=== PATIENT | male | born 1970 | race Caucasian/White ===

== ENCOUNTER 2023-05-17 14:34 | Emergency (ER) | payer MEDICAID ==
[~2023-05-17] VITALS: Ht 200.7 cm; Wt 130.0 kg
[2023-05-17] MEDS ORDERED: ACETAMINOPHEN 500 MG TAB PO ONE ×2 (15:00→16:30)
[2023-05-17] MEDS ORDERED: SODIUM CHLORIDE 0.9% 1,000 ML IV ONE (15:00)
[2023-05-17 15:28] VITALS: BP 156/105; PULSE 116; RESP 20; O2SAT 96
[2023-05-17 15:40] LABS: Basophils # (auto) 0.1 10 ^3/uL (0-0.2); Basophils % (auto) 1.1 % (0.0-2.0); Eosinophils # (auto) 0 10 ^3/uL (0-0.8); Eosinophils % (auto) 0.2 % (0.0-7.0); Hematocrit 44.6 % (41.0-53.0); Hemoglobin 14.5 g/dL (13.5-17.5); Lymphocytes # (auto) 1.6 10 ^3/uL (0.4-5.4); Lymphocytes % (auto) 12.4 % (10.0-50.0); Mean Corpuscular Hemoglobin 29.8 pg (28.0-32.0); Mean Corpuscular Hgb Conc. 32.5 g/dL (32.0-36.0); Mean Corpuscular Volume 91.9 fL (80.0-100.0); Monocytes # (auto) 0.9 10 ^3/uL (0-1.3); Monocytes % (auto) 7.3 % (0.0-12.0); Neutrophils # (auto) 9.9 10 ^3/uL (1.6-8.6); Nucleated Red Blood Cells % 0.1 %; Red Blood Cells 4.85 10^6/uL (4.5-5.90); White Blood Cell 12.6 10^3/uL (4.4-10.8)
[2023-05-17 15:57] LABS: Alanine Aminotransferase 27 U/L (7-40); Albumin 4.2 g/dL (3.2-4.8); Alkaline Phosphatase 122 U/L (46-116); Anion Gap 5 (5-15); Aspartate Aminotransferase 26 U/L (13-40); Bilirubin, Total 2.5 mg/dL (0.2-1.0); Blood Urea Nitrogen 9 mg/dL (9-23); Calcium 9.4 mg/dL (8.5-10.1); Carbon Dioxide 27 mmol/L (20-30); Chloride 107 mmol/L (98-107); Glucose 166 mg/dL (74-106); Sodium 139 mmol/L (136-145); Total Protein 7.4 g/dL (5.7-8.2)
[2023-05-17 16:23] VITALS: TEMP 97.9
[2023-05-17] MEDS ORDERED: ASPirin 325 MG TAB PO ONE (16:30)
[2023-05-17] MEDS ORDERED: FUROSEMIDE 40 MG/4 ML VIAL IV ONE (16:30)
[2023-05-17 16:37] LABS: Lactic Acid w/Reflex 2.4 mmol/L (0.4-2.0)
[2023-05-17] MEDS ORDERED: PIPERACILLIN-TAZO 4.5GM 100 ML IV ONE (16:45)
[2023-05-17 16:52] LABS: INR 1.24 (0.9-1.15); Prothrombin Time 12.8 sec (9.3-11.8)
[2023-05-17] MEDS ORDERED: VANCOMYCIN 1GM/200ML 200 ML IV ONE (18:00)
== END 2023-05-17 16:57 | disposition left against medical advice (07) ==
LOC: ER 14:34
DX: A41.9 Sepsis, unspecified organism (principal); I11.0 Hypertensive heart disease with heart failure; I50.9 Heart failure, unspecified; R50.9 Fever, unspecified; L97.519 Non-pressure chronic ulcer of other part of right foot with unspecified severity; R74.02 Elevation of levels of lactic acid dehydrogenase [LDH]; J44.9 Chronic obstructive pulmonary disease, unspecified; E11.9 Type 2 diabetes mellitus without complications; I25.2 Old myocardial infarction; F17.210 Nicotine dependence, cigarettes, uncomplicated; Z86.73 Personal history of transient ischemic attack (TIA), and cerebral infarction without residual deficits
CPT/HCPCS: 36415; 71045; 73620; 80053; 83605; 83690; 83880; 84484; 85025; 85379; 85610; 86141; 87040; 96360; 99291; J7030

== ENCOUNTER 2025-01-18 02:27 | Emergency (ER) | payer MEDICAID ==
[~2025-01-18] VITALS: Ht 200.7 cm; Wt 156.1 kg
[2025-01-18 02:28] VITALS: BP 148/89; RESP 24; TEMP 99.4; O2SAT 87
[2025-01-18 02:46] VITALS: PULSE 118
--- NOTE | 2025-01-18 03:19 | DVH ---
CHEST RADIOGRAPH Indication: cp Technique: Single frontal view of the chest was obtained COMPARISON: XY CHEST XRAY 1 VIEW on DOS: 05/17/23 FINDINGS: Lines and Tubes: None Lungs: Moderate diffuse increased prominence of the pulmonary vasculature. No evidence of focal conso lidation. Pleura: No effusion. No pneumothorax. Cardiomediastinal contours: Cardiomegaly. Bones: Unremarkable IMPRESSION: 1. Cardiomegaly with moderate pulmonary vascular congestion.
[2025-01-18 04:07] LABS: Chloride 104 mmol/L (98-107); Potassium 4.2 mmol/L (3.5-5.1); Sodium 136 mmol/L (136-145)
[2025-01-18 04:08] LABS: Anion Gap 8 (5-15); Calcium 8.8 mg/dL (8.7-10.4); Carbon Dioxide 24 mmol/L (20-31)
[2025-01-18 04:09] LABS: Hematocrit 40.7 % (41.0-53.0); Hemoglobin 13.2 g/dL (13.5-17.5); Mean Corpuscular Hemoglobin 28.5 pg (28.0-32.0); Mean Corpuscular Volume 88.1 fL (80.0-100.0); Nucleated Red Blood Cells % 0.0 %
[2025-01-18 04:13] LABS: BUN/Creatinine Ratio 6.5 (10.0-20.0)
[2025-01-18 04:16] LABS: Blood Urea Nitrogen 8 mg/dL (9-23); Glucose 149 mg/dL (74-106)
--- NOTE | 2025-01-18 10:38 | ECG ---
[facility] Test Date: 2025-01-18 Test Time: 02:46:05 Pat Name: JOSE MACHADO Department: [facility] ED Patient ID: [id number] Room: Gender: Fitter Helper: : 1970 Requested By: MINI ARIAS Order Number: [id number] Reading MD: Jose Luis Ruelas Measurements Intervals [place] Rate: 118 P: 68 ID: [id number] QRS: 156 QRSD: 104 T: 0 QT: 383 QTc: 537 Interpretive Statements Sinus tachycardia Consider right ventricular hypertrophy Nonspecific T abnormalities, lateral leads Prolonged QT interval Baseline wander in lead(s) I,II,aVR,aVL,aVF Electronically Signed On 01-20-2025 9:51:38 PDT by Jose Luis Ruelas Please click the below link to view image of tracing.
== END 2025-01-18 04:43 | disposition left against medical advice (07) ==
LOC: ER 02:31
DX: R06.02 Shortness of breath (principal); Z53.21 Procedure and treatment not carried out due to patient leaving prior to being seen by health care provider; Z79.899 Other long term (current) drug therapy
CPT/HCPCS: 36415; 71045; 80048; 82947; 82962; 83880; 84484; 85025; 93005

== ENCOUNTER 2025-03-03 00:56 | Inpatient (IN) | payer MEDICAID ==
[2025-03-03] VITALS (9 sets, daily range): BP systolic 112–153; BP diastolic 79–100; PULSE 79–101; RESP 18–20; TEMP 97.3–98.1; O2SAT 91–99
[~2025-03-03] VITALS: Ht 200.7 cm; Wt 160.0 kg
--- NOTE | 2025-03-03 02:01 | ED.PDOC ---
History of Present Illness HPI Comments 54-year-old male complaining of pain and swelling to bilateral lower extremities. Patient states he has been dealing with wounds on his lower legs for months. States he has been homeless, he was prescribed medications for diabetes and CHF. He says he stopped taking approximate one year ago. States he stopped taking them because they cause more side effects and they are worth taking. He thought he can manage treating his wounds on his feet on his own but he has not been able to. He says it become more painful more swollen. Says his multiple wounds on the right foot. Patient also states he has been dealing with shortness of breath over the last 4-5 months. Says he has been getting worse over the last three four days. No fever no chills. Nothing makes it better, exertion makes it worse. Patient is ambulating with a wheelchair. Chief Complaint: Lower Extremity Time Seen by MD: :25 Reviewed Notes: Nurses Notes Allergies: Coded Allergies: NO KNOWN ALLERGIES (Unverified , 05/17/23) Information Source: Patient Mode of Arrival: Ambulatory Past Medical History PAST MEDICAL HISTORY: Asthma, CHF, COPD, DM, NM, TIA Surgical History: Denies all surgeries Family History Family History: Reviewed,noncontributory to illness Social History Smoker: Cigarettes Alcohol: Occasionally Drugs: Other Lives In: Home Constitutional: reports: malaise, weakness; denies: chills, diaphoresis, fatigue, fever, sweats, others EENTM: denies: blurred vision, double vision, ear bleeding, ear discharge, ear drainage, ear pain, ear ringing, eye pain, eye redness, hearing loss, mouth pain, mouth swelling, nasal discharge, nose bleeding, nose congestion, nose pain, photophobia, tearing, throat pain, throat swelling, voice changes, others Respiratory: reports: SOB at rest, SOB with excertion; denies: cough, hemoptysis, orthopnea, shortness of breath, stridor, wheezing, others Cardiovascular: denies: chest pain, dizzy spells, diaphoresis, Dyspnea on exertion, edema, irregular heart beat, left arm pain, lightheadedness, palpitations, PND, syncope, others Gastrointestinal: denies: abdomen distended, abdominal pain, blood streaked bowels, constipated, diarrhea, dysphagia, difficulty swallowing, hematemesis, me benita, nausea, poor appetite, poor fluid intake, rectal bleeding, rectal pain, vomiting, others Genitourinary: denies: burning, dysuria, flank pain, frequency, hematuria, incontinence, penile discharge, penile sore, pain, testicle pain, testicle swelling, urgency, others Neurological: denies: dizziness, fainting, headache, left sided numbness, left sided weakness, numbness, paresthesia, pre-existing deficit, right sided numbness, right sided weakness, seizure, speech problems, tingling, tremors, weakness, others Musculoskeletal: denies: back pain, gout, joint pain, joint swelling, muscle pain, muscle stiffness, neck pain, others Integumetry: denies: bruises, change in color, change in hair/nails, dryness, laceration, lesions, lumps, rash, wounds, others Allergic/Immunocompromised: reports: Difficulty Healing, Frequent Infections; denies: Hives, Itching, others Hematologic/Lymphatic: denies: anemia, blood clots, easy bleeding, easy bruising, swollen glands, others Physical Exam General Appearance: Moderate Distress, Normal HEENT: Normal ENT Inspection, Pharynx Normal, TMs Normal Neck: Full Range of Motion, Non-Tender, Normal, Normal Inspection Respiratory: Chest Non-Tender, Lungs Clear, No Accessory Muscle Use, No Respiratory Distress, Normal Breath Sounds Cardiovascular: No Edema, No JVD, No Murmur, No Gallop, Normal Peripheral Pulses, Regular Rate/Rhythm Breast Exam: Deferred Gastrointestinal: No Organomegaly, Non Tender, No Pulsatile Mass, Normal Bowel Sounds, Soft Genitalia: Deferred Pelvic: Deferred Rectal: Deferred Extremities: Pedal edema, Swelling (Bilateral feet), Tender (Bilateral lower extremity) Musculoskeletal : Apperance: Normal 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 Was a procedure done?: No Differential Dx Considerations may include: Cellulitis, CHF exacerbation, PE, peripheral edema, X-Ray, Labs, Meds, VS Vital Signs Date Time Temp Pulse Resp B/P (MAP) Pulse Ox O2 Delivery O2 Flow Rate FiO2 03/03/25 00:59 97.9 102 20 140/93 95 97.9 Lab Test 10/29/25 02:10 Range/Units White Blood Count 10.8 4.4-10.8 10^3/uL Red Blood Count 4.38 L 4.5-5.90 10^6/uL Hemoglobin 11.7 L 13.5-17.5 g/dL Hematocrit 38.5 L 41.0-53.0 % Mean Corpuscular Volume 87.9 80.0-100.0 fL Mean Corpuscular Hemoglobin 26.7 L 28.0-32.0 pg Mean Corpuscular Hemoglobin Concent 30.4 L 32.0-36.0 g/dL Red Cell Distribution Width 17.6 H 11.8-14.3 % Platelet Count 371 140-450 10^3/uL Mean Platelet Volume 7.6 6.9-10.8 fL Neutrophils (%) (Auto) 79.9 37.0-80.0 % Lymphocytes (%) (Auto) 10.2 10.0-50.0 % Monocytes (%) (Auto) 8.0 0.0-12.0 % Eosinophils (%) (Auto) 0.7 0.0-7.0 % Basophils (%) (Auto) 1.2 0.0-2.0 % Neutrophils # (Auto) 8.6 1.6-8.6 10 ^3/uL Lymphocytes # (Auto) 1.1 0.4-5.4 10 ^3/uL Monocytes # (Auto) 0.9 0-1.3 10 ^3/uL Eosinophils # (Auto) 0.1 0-0.8 10 ^3/uL Basophils # (Auto) 0.1 0-0.2 10 ^3/uL Nucleated Red Blood Cells 0.1 % Sodium Level 138 136-145 mmol/L Potassium Level 4.6 3.5-5.1 mmol/L Chloride Level 105 98-107 mmol/L Carbon Dioxide Level 26 20-31 mmol/L Anion Gap 7 5-15 Blood Urea Nitrogen 9 9-23 mg/dL Creatinine 1.01 0.700-1.30 mg/dL Glomerular Filtration Rate Calc 88 >90 mL/min BUN/Creatinine Ratio 8.9 L 10.0-20.0 Serum Glucose 158 H 74-106 mg/dL Lactic Acid Level 1.4 0.4-2.0 mmol/L Calcium Level 8.8 8.7-10.4 mg/dL Total Bilirubin 0.8 0.2-1.0 mg/dL Aspartate Amino Transferase (AST) 29 13-40 U/L Alanine Aminotransferase (ALT) 25 7-40 U/L Alkaline Phosphatase 102 46-116 U/L B-Type Natriuretic Peptide 981.95 0-100 pg/mL Total Protein 8.0 5.7-8.2 g/dL Albumin 3.5 3.2-4.8 g/dL X-Ray, Labs, Meds, VS Comment Patient will be admitted for shortness of breath, CHF exacerbation, cellulitis of bilateral lower extremities Patient be started on vancomycin Patient be given 40 mg Lasix Time of 1ST Reevaluation: 03:13 Reevaluation 1ST: Unchanged Patient Education/Counseling: Diagnosis, Treatment Family Education/Counseling: Diagnosis, Treatment Assigned to Dr. Dr Garza Change of Shift?: Yes SEPSIS Sepsis Screen Date sepsis recognized/suspect: Mar 03, 2025 Time Sepsis recognized/suspect: 010 Recent Procedure: No On Antibiotic Therapy: No Respiratory Rate >20: No Heart Rate >90: Yes Temp<36 C (96.8 F) or >38.3 C: No SBP <90 or MAP <65 mmHG: No New Acute Mental Status Change: No Is the patient on CPAP, BIPAP,: No Physician Orders Urinalysis (03/03/25 01:38) Blood Culture (03/03/25 01:38) Chest Xray 1 View (03/03/25 01:38) Vancomycin 1gm/250ml Kit (03/03/25 03:15) Vital Signs Date Time Temp Pulse Resp B/P (MAP) Pulse Ox O2 Delivery O2 Flow Rate FiO2 03/03/25 00:59 97.9 102 20 140/93 95 97.9 Laboratory Tests Test 03/03/25 02:10 Lactic Acid Level 1.4 mmol/L (0.4-2.0) White Blood Count 10.8 10^3/uL (4.4-10.8) Departure 1 Departure Time of Disposition: 02:00 Impression: Primary Impression: Chronic ulcer of plantar surface of right midfoot Qualified Codes: L97.419 - Non-pressure chronic ulcer of right heel and midfoot with unspecified severity Additional Impression: CHF exacerbation Qualified Codes: I50.23 - Acute on chronic systolic (congestive) heart failure Disposition: 09 ADMITTED INPATIENT Condition: Stable Critical Care Note Critical Care Time?: No Stability Stability form required: No Heart Score Heart Score: Heart Score Response (Comments) Value History N/A 0 EKG N/A 0 Age N/A 0 Risk Factors N/A 0 Troponin N/A 0 Total 0 JOVANY CASTILLO Mar 03, 2025 02:01
[2025-03-03 02:29] LABS: Hematocrit 38.5 % (41.0-53.0); Hemoglobin 11.7 g/dL (13.5-17.5); Mean Corpuscular Hemoglobin 26.7 pg (28.0-32.0); Mean Corpuscular Volume 87.9 fL (80.0-100.0); Nucleated Red Blood Cells % 0.1 %
--- NOTE | 2025-03-03 02:40 | DVH ---
CHEST RADIOGRAPH Indication: sob Technique: Single frontal view of the chest was obtained COMPARISON: XY CHEST XRAY 1 VIEW on DOS: 01/18/25, XY CHEST XRAY 1 VIEW on DOS: 05/17/23 FINDINGS: Lines and Tubes: None Lungs: Moderate diffuse increased prominence of the pulmonary vasculature without evidence of focal c onsolidation. Pleura: No effusion. No pneumothorax. Cardiomediastinal contours: Cardiomegaly. Bones: Unremarkable IMPRESSION: 1. Cardiomegaly with moderate pulmonary vascular congestion.
[2025-03-03 02:48] LABS: Alanine Aminotransferase 25 U/L (7-40); Albumin 3.5 g/dL (3.2-4.8); Alkaline Phosphatase 102 U/L (46-116); Anion Gap 7 (5-15); BUN/Creatinine Ratio 8.9 (10.0-20.0); Bilirubin, Total 0.8 mg/dL (0.2-1.0); Calcium 8.8 mg/dL (8.7-10.4); Carbon Dioxide 26 mmol/L (20-31); Chloride 105 mmol/L (98-107); Potassium 4.6 mmol/L (3.5-5.1); Sodium 138 mmol/L (136-145); Total Protein 8.0 g/dL (5.7-8.2)
[2025-03-03 02:52] LABS: Blood Urea Nitrogen 9 mg/dL (9-23); Glucose 158 mg/dL (74-106)
[2025-03-03] MEDS: FUROSEMIDE 40 MG/4 ML VIAL IV ONE (03:44)
[2025-03-03] MEDS: VANCOMYCIN 1GM/250ML KIT 250 ML IV ONE (03:44)
[2025-03-03] MEDS: IBUPROFEN 600 MG TAB PO ONE (04:13)
[2025-03-03] MEDS: ACETAMINOPHEN 325 MG TAB PO ONE (04:13)
[2025-03-03] MEDS ORDERED: DEXTROSE (50%) 50ML SYRG IV PRN (04:45)
[2025-03-03] MEDS ORDERED: VANCOMYCIN PER PHARMACY 0 MG IV SCH (04:45)
--- NOTE | 2025-03-03 05:22 | DVHHPRES ---
History of Present Illness Resident Creating Document: JOHN SHAFFER History of Present Illness Patient is a 54-year-old homeless male with past medical history of CHF (EF 10%), COPD, DM, NE and stroke, presented to [facility] ED with complaint of pain and swelling in bilateral lower extremities. He reports having wounds on both lower legs for several months. Patient was previously prescribed medications for diabetes and CHF, which he discontinued approximately one year ago due to perceived side effects and lack of benefit. He reports worsening pain and swelling in his both legs, particularly on the right foot. He reports progressive shortness of breath over the past 4 months, with worsening symptoms over the last 4 days. On evaluation in the ED, patient is afebrile, tachycardic, tachypnea, hypertensive (141/86 mmHg) and hypoxic, using 2 L Oxygen NC. Initial labs show normocytic anemia and serum glucose 158. Chest X-ray shows cardiomegaly with moderate pulmonary vascular congestion. The patient was started on IV antibiotics and IV fluids. Patient is admitted for further evaluation and management. Past Medical History CHF (EF 10%), COPD, DM, NE, stroke Past Surgical History: Hernia Repair Family History: None Smoke: # pack years ALCOHOL: occassional Drugs: Other Lives: Homeless Past Social History Smoke: >40 years 1 pack a day. Alcohol: Occasionally. Drug: Methamphetamine, heroin, cocaine Review of Systems Review of Systems Constitutional: Malaise, weakness Eyes: No Pain, No Vision change, No Conjunctivae inflammation, No Eyelid inflammation, No Other, No Redness ENT: No Ear pain, No Ear discharge, No Nose pain, No Nose discharge, No Nose congestion, No Mouth pain, No Mouth swelling, No Throat pain, No Throat swelling, No Other Cardiovascular: No Chest Pain, No Palpitations, No Orthopnea, No Paroxysmal No Dyspnea, No Edema, No Lt Headedness, No Other Respiratory: No Cough, No Dry, Shortness of breath, SOB with exertion, No Wheezing, No Hemoptysis, No Pleuritic Pain, No Sputum, No Other Gastrointestinal: No Nausea, No Vomiting, No Abdominal Pain, No Diarrhea, No Constipation, No Melena, No Hematochezia, No Other Genitourinary: No Dysuria, No Frequency, No Incontinence, No Hematuria, No R etention, No Other Musculoskeletal: No other, No neck pain, No shoulder pain, No arm pain, No back pain, No hand pain, leg pain, foot pain Skin: No Rash, No Lesions, No Jaundice, No Bruising, No Other Allergic/Immunocompromised: Difficulty Healing, Frequent Infections Allergies: Coded Allergies: NO KNOWN ALLERGIES (Unverified , 05/17/23) Medications Current Medications Medications Dose Ordered Sig/Fartun Route Start Time Stop Time Status Last Admin Dose Admin Sodium Chloride 10 ml Q8HR IV 03/03/25 06:00 UNV Enoxaparin Sodium 40 mg DAILY SC 03/03/25 10:00 UNV Acetaminophen 650 mg Q6HP PRN PO 03/03/25 04:45 UNV Vancomycin HCl 0 ml @ 0 mls/hr PER PHARMACY IV 03/03/25 04:45 UNV Ceftriaxone Sodium 50 ml @ 100 mls/hr DAILY@09 IV 03/03/25 09:00 UNV Exam Vital Signs Vital Signs Date Time Temp Pulse Resp B/P (MAP) Pulse Ox O2 Delivery O2 Flow Rate FiO2 03/03/25 04:00 102 03/03/25 03:44 136/87 03/03/25 03:36 20 92 Nasal Cannula* 2 28 03/03/25 03:36 98.1 98.1 Exam General Appearance: Cooperative. Well developed. Well nourished. NAD Head Exam: Normal inspection Neck Exam: Normal inspection. Non-tender. Normal alignment Pulmonary/Respiratory: Chest non-tender. Clear bilateral breath sounds, no crackles, no wheezing. Cardiovascular/Chest: Regular rate and rhythm. No murmurs. No JVD. Peripheral Pulses: 2+ Radial (R). 2+ Radial (L). 2+ Pedal (R). 2+ Pedal (L) Abdominal Exam: Normal bowel sounds. Soft. normal abdomen, no visible veins, Nontender. No hepatospenomegaly. No masses Ankle Exam: Negative ankle edema Lower extremities: Lower extremity edema, pedal edema, bilateral feet swelling, bilateral lower extremity tenderness, right foot Charcot deformity, Chronic ulcer of plantar surface of right midfoot Neuro/Mental Status: A&O x4. Coherent. Thoughts/Psych: Normal thought pattern. Appropriate mood and affect. Good judgement and insight Skin Exam: Normal inspection. Normal color. Warm. Dry Labs/Xrays Labs Test 03/03/25 02:10 Range/Units White Blood Count 10.8 4.4-10.8 10^3/uL Red Blood Count 4.38 L 4.5-5.90 10^6/uL Hemoglobin 11.7 L 13.5-17.5 g/dL Hematocrit 38.5 L 41.0-53.0 % Mean Corpuscular Volume 87.9 80.0-100.0 fL Mean Corpuscular Hemoglobin 26.7 L 28.0-32.0 pg Mean Corpuscular Hemoglobin Concent 30.4 L 32.0-36.0 g/dL Red Cell Distribution Width 17.6 H 11.8-14.3 % Platelet Count 371 140-450 10^3/uL Mean Platelet Volume 7.6 6.9-10.8 fL Neutrophils (%) (Auto) 79.9 37.0-80.0 % Lymphocytes (%) (Auto) 10.2 10.0-50.0 % Monocytes (%) (Auto) 8.0 0.0-12.0 % Eosinophils (%) (Auto) 0.7 0.0-7.0 % Basophils (%) (Auto) 1.2 0.0-2.0 % Neutrophils # (Auto) 8.6 1.6-8.6 10 ^3/uL Lymphocytes # (Auto) 1.1 0.4-5.4 10 ^3/uL Monocytes # (Auto) 0.9 0-1.3 10 ^3/uL Eosinophils # (Auto) 0.1 0-0.8 10 ^3/uL Basophils # (Auto) 0.1 0-0.2 10 ^3/uL Nucleated Red Blood Cells 0.1 % Sodium Level 138 136-145 mmol/L Potassium Level 4.6 3.5-5.1 mmol/L Chloride Level 105 98-107 mmol/L Carbon Dioxide Level 26 20-31 mmol/L Anion Gap 7 5-15 Blood Urea Nitrogen 9 9-23 mg/dL Creatinine 1.01 0.700-1.30 mg/dL Glomerular Filtration Rate Calc 88 >90 mL/min BUN/Creatinine Ratio 8.9 L 10.0-20.0 Serum Glucose 158 H 74-106 mg/dL Lactic Acid Level 1.4 0.4-2.0 mmol/L Calcium Level 8.8 8.7-10.4 mg/dL Total Bilirubin 0.8 0.2-1.0 mg/dL Aspartate Amino Transferase (AST) 29 13-40 U/L Alanine Aminotransferase (ALT) 25 7-40 U/L Alkaline Phosphatase 102 46-116 U/L B-Type Natriuretic Peptide 981.95 0-100 pg/mL Total Protein 8.0 5.7-8.2 g/dL Albumin 3.5 3.2-4.8 g/dL SEPSIS Sepsis Screen Date sepsis recognized/suspect: Mar 03, 2025 Time Sepsis recognized/suspect: 337 Recent Procedure: No On Antibiotic Therapy: No Respiratory Rate >20: No Heart Rate >90: No Temp<36 C (96.8 F) or >38.3 C: No SBP <90 or MAP <65 mmHG: No New Acute Mental Status Change: No Is the patient on CPAP, BIPAP,: No Physician Orders Urinalysis (03/03/25 01:38) Blood Culture (03/03/25 01:38) Chest Xray 1 View (03/03/25 01:38) Admit (03/03/25 04:31) Allergies (03/03/25 04:31) Code Status (03/03/25 04:31) Sodium Chloride Lock (Saline Lock Ns) (03/03/25 06:00) Enoxaparin Sodium (Lovenox) (03/03/25 10:00) Complete Blood Count (03/03/25 04:31) Comprehensive Metabolic Panel (03/03/25 04:31) Cardiac Diet-2gna,Lofat,Lochol (03/03/25 Breakfast) Pt Request For Service (03/03/25 04:31) Echo 2d Mode Cardiac Dop (03/03/25 04:31) Condition: Fair (03/03/25 04:31) Acetaminophen Tablet (Tylenol Tablet) (03/03/25 04:45) Oxygen By Nasal Cannula (03/03/25 04:31) Stat Ekg For Chest Pain (03/03/25 04:31) Notify Md Of Changes From Base (03/03/25 04:31) Community Service Worker For 24 Hours (03/03/25 04:31) Emergency Dysrhythmia Protocol (03/03/25 04:31) Rhythm Strips Once Every Shift (03/03/25 04:31) Urinalysis (03/03/25 04:31) Drug Screen (03/03/25 04:31) Hepatic Panel (03/03/25 04:31) Vancomycin Per Pharmacy (03/03/25 04:45) Ceftriaxone 1gm/50ml (Rocephin) (03/03/25 09:00) Ceftriaxone 1gm/50ml (Rocephin) (03/03/25 04:45) * Wound Consult (03/03/25 ) Furosemide Injection (Lasix Injection) (03/03/25 10:00) Glucose Blood (Accu-Chek Comfort Curve T (03/03/25 07:00) Insulin R (Human) (Insulin R) (03/03/25 07:00) Dextrose 50% Syringe (03/03/25 04:45) Maintain Fluid Restrictions QSHIFT (03/03/25 04:31) Strict I & O QSHIFT (03/03/25 04:31) Levalbuterol Hcl (Xopenex Medneb) (03/03/25 06:00) Ipratropium Medneb (Atrovent Medneb) (03/03/25 04:45) Med Neb Initial Treatment (03/03/25 04:31) Magnesium (03/03/25 04:31) Covid19 Antigen Rama (03/03/25 ) Rapid Influenza A&B (03/03/25 04:31) Hydrocodone-Acet 5/325mg Tab ([place] (03/03/25 04:45) Mrsa Screen (03/03/25 04:31) Vital Signs Date Time Temp Pulse Resp B/P (MAP) Pulse Ox O2 Delivery O2 Flow Rate FiO2 03/03/25 04:00 102 03/03/25 03:44 136/87 03/03/25 03:36 98 20 92 Nasal Cannula* 2 28 03/03/25 03:36 98.1 102 22 141/86 (104) 92 98.1 03/03/25 00:59 97.9 102 20 140/93 95 97.9 Laboratory Tests Test 03/03/25 02:10 Lactic Acid Level 1.4 mmol/L (0.4-2.0) White Blood Count 10.8 10^3/uL (4.4-10.8) Medications Medications Dose Ordered Sig/Fartun Route Start Time Stop Time Status Last Admin Dose Admin Acetaminophen 650 mg ONCE ONCE PO 03/03/25 04:00 03/03/25 04:10 DC 03/03/25 04:13 650 MG Furosemide 40 mg ONCE ONCE IV 03/03/25 03:15 03/03/25 03:19 DC 03/03/25 03:44 40 MG Ibuprofen 600 mg ONCE ONCE PO 03/03/25 04:00 03/03/25 04:10 DC 03/03/25 04:13 600 MG Vancomycin HCl 250 ml @ 250 mls/hr ONCE ONCE IV 03/03/25 03:15 03/03/25 04:14 DC 03/03/25 03:44 250 MLS/HR Assessment/Plan Assessment/Plan Acute CHF exacerbation, HFrEF (EF 10%) Acute hypoxic respiratory failure likely due to above CXR: Cardiomegaly with moderate pulmonary vascular congestion. Echocardiogram ordered Furosemide 40 mg IV daily Levalbuterol 1.25 mg neb q4h Ipratropium 0.5 mg neb COVID 19 Antigen Rapid Influenza Bilateral lower extremity cellulitis Chronic ulcer of plantar surface of right midfoot likely due to complicated by uncontrolled diabetes Wound consult Blood culture MRSA screen Pain management with acetaminophen 650 mg po q6h and [place] 1 tab po q6h Ceftriaxone IV daily Vancomycin IV per pharmacy Type 2 diabetes mellitus with hyperglycemia, uncontrolled Mild sliding scale A1c Obesity, BMI 42.4 kg/m2 I have counseled the patient on [place] lifestyle modifications. Diet: Cardiac DVT prophylaxis: Lovenox 40mg Goals of care: Full code, discussed for >30 minutes on 03/03/25 Plan discussed with patient Plan discussed with Dr. Lopez Plan discussed with: Patient, Daughter My Orders Orders - JOHN SHAFFER Procedure Category Date Status Time Admit ADMIT 03/03/25 Transmitted 04:31 Allergies LONG 03/03/25 In Process 04:31 Code Status CODE 03/03/25 Transmitted 04:31 Sodium Chloride Lock PHA 03/03/25 Logged (Saline Lock Ns) 06:00 Enoxaparin Sodium PHA 03/03/25 Logged (Lovenox) 10:00 Complete Blood Count LAB 03/03/25 Logged 04:31 Comprehensive LAB 03/03/25 Logged Metabolic Panel 04:31 Cardiac DIET 03/03/25 Transmitted Diet-2gna,Lofat,Lochol Breakfast Pt Request For Service PT 03/03/25 Logged 04:31 Echo 2d Mode Cardiac US 03/03/25 Logged DOP 04:31 Condition: Fair [facility] 03/03/25 In Process 04:31 Acetaminophen Tablet PHA 03/03/25 Logged (Tylenol Tablet) 04:45 Oxygen By Nasal RT 03/03/25 Transmitted Cannula 04:31 Stat Ekg For Chest [facility] 03/03/25 In Process Pain 04:31 Notify Of Changes [facility] 03/03/25 In Process From Base 04:31 Community Service Worker For [facility] 03/03/25 In Process 24 Hours 04:31 Emergency Dysrhythmia [facility] 03/03/25 In Process Protocol 04:31 Rhythm Strips Once [facility] 03/03/25 In Process Every Shift 04:31 Urinalysis LAB 03/03/25 Logged 04:31 Drug Screen LAB 03/03/25 Logged 04:31 Hepatic Panel LAB 03/03/25 Logged 04:31 Vancomycin Per PHA 03/03/25 Logged Pharmacy 04:45 Ceftriaxone 1gm/50ml PHA 03/03/25 Logged (Rocephin) 09:00 Ceftriaxone 1gm/50ml PHA 03/03/25 Logged (Rocephin) 04:45 * Wound Consult CONS 03/03/25 Transmitted Furosemide Injection PHA 03/03/25 Logged (Lasix Injection) 10:00 Glucose Blood PHA 03/03/25 Logged (Accu-Chek Comfort 07:00 Insulin R (Human) PHA 03/03/25 Logged (Insulin R) 07:00 Dextrose 50% Syringe PHA 03/03/25 Logged 04:45 Maintain Fluid [facility] 03/03/25 In Process Restrictions 04:31 Strict I & O [facility] 03/03/25 In Process 04:31 Levalbuterol Hcl PHA 03/03/25 Transmitted (Xopenex Medneb) 06:00 Ipratropium Medneb PHA 03/03/25 Transmitted (Atrovent Medneb) 04:45 Med Neb Initial RT 03/03/25 Logged Treatment 04:31 Magnesium LAB 03/03/25 Logged 04:31 Covid19 Antigen Rama LAB 03/03/25 Logged Rapid Influenza A&B LAB 03/03/25 Logged 04:31 Hydrocodone-Acet PHA 03/03/25 Transmitted 5/325mg Tab ([place] 04:45 Mrsa Screen STEVEN 03/03/25 Logged 04:31 Date of Service: Mar 03, 2025 Billing Provider: THOMAS LOPEZ MD Common Visit Codes: [id number] INP/OBS CARE (HIGH) Secondary Visit Codes: [id number] CARE PLAN 30 MINUTES JOHN SHAFFER RESIDENT Mar 03, 2025 05:22
[2025-03-03] MEDS: SODIUM CHLOR 0.9% PF (SALINE LOCK) 10ML VIAL/SYR IV SCH (05:51)
[2025-03-03] MEDS: ACCU-CHEK COMFORT CURVE STRIP VI SCH (05:53)
[2025-03-03] MEDS: InsuLIN REG 1unit/0.01ml Soln (100units/ml) SC SCH (05:59)
[2025-03-03] MEDS: LEVALBUTEROL HCL 1.25 MG/3 ML NEB NEB SCH (06:00)
[2025-03-03 06:29] LABS: Hematocrit 36.8 % (41.0-53.0); Hemoglobin 11.5 g/dL (13.5-17.5); Mean Corpuscular Hemoglobin 26.8 pg (28.0-32.0); Mean Corpuscular Volume 85.9 fL (80.0-100.0); Nucleated Red Blood Cells % 0.1 %
[2025-03-03 06:49] LABS: Alanine Aminotransferase 22.0 U/L (7-40); Alkaline Phosphatase 97.0 U/L (46-116); Magnesium 1.8 mg/dL (1.6-2.6); Total Protein 7.9 g/dL (5.7-8.2)
[2025-03-03 06:50] LABS: Albumin 3.3 g/dL (3.2-4.8); Bilirubin, Total 0.9 mg/dL (0.2-1.0)
[2025-03-03 06:53] LABS: Bilirubin, Direct 0.5 mg/dL (<0.3)
[2025-03-03 06:58] LABS: Alanine Aminotransferase 22 U/L (7-40); Albumin 3.4 g/dL (3.2-4.8); Alkaline Phosphatase 98 U/L (46-116); Anion Gap 9 (5-15); BUN/Creatinine Ratio 8.0 (10.0-20.0); Carbon Dioxide 25 mmol/L (20-31); Chloride 105 mmol/L (98-107); Potassium 4.1 mmol/L (3.5-5.1); Sodium 139 mmol/L (136-145); Total Protein 7.9 g/dL (5.7-8.2)
[2025-03-03 06:59] LABS: Bilirubin, Total 0.8 mg/dL (0.2-1.0)
[2025-03-03 07:00] LABS: Blood Urea Nitrogen 9 mg/dL (9-23); Calcium 8.5 mg/dL (8.7-10.4); Glucose 157 mg/dL (74-106)
[2025-03-03] MEDS ORDERED: FUROSEMIDE 40 MG/4 ML VIAL IV SCH (10:00)
[2025-03-03] MEDS: ENOXAPARIN SOD 40 MG/0.4 ML SYRINGE SC SCH (10:00)
[2025-03-03 10:33] LABS: COVID19 ANTIGEN SOFIA FIA NEGATIVE (NEGATIVE)
[2025-03-03] MEDS: OPTISON 3ml Vial for INJ IV ONE ×2 (11:15→11:22)
[2025-03-03] MEDS ORDERED: VANCOMYCIN 1.5GM/250ML 250 ML IV SCH (16:00)
[2025-03-03] MEDS: CEFEPIME 1GM/50ML 50 ML IV SCH (16:09)
--- NOTE | 2025-03-03 16:43 | DVHPNRES ---
Progress Note Date Seen: Mar 03, 2025 Resident Creating Document: FRANKLIN PERALES RESIDENT Medical Necessity Reason Pt with a Central, PICC or Fol: No Subjective Review of Systems History on presentation: Patient is a 54-year-old homeless male with past medical history of CHF (EF 10%), COPD, DM, [place] and stroke, presented to [facility] ED with complaint of pain and swelling in bilateral lower extremities. Patient is a poor historian. Patient complains of pain in bilateral thighs, relieved with walking. He also reports having nonhealing ulcers on both lower legs for several months. Patient was previously prescribed medications for diabetes and CHF, which he discontinued approximately one year ago due to perceived side effects and lack of benefit. He reports worsening pain and swelling in his both legs, particularly on the right foot. He reports progressive shortness of breath over the past 4 months, with worsening symptoms over the last 4 days. He denies fever, chills, nausea, vomiting. On arrival, patient had tachycardic, tachypnea and hypoxic, using 2 L Oxygen NC. Initial labs show normocytic anemia and serum glucose 158. Chest X-ray shows cardiomegaly with moderate pulmonary vascular congestion. Previous hospitalization: PMHx: CHF (EF 10%), COPD, DM, TX, stroke, HTN PSHx: Hernia Repair Social history: Smoke: >40 years 1 pack a day. Alcohol: Occasionally. Drug: Methamphetamine, heroin, cocaine. Unhoused Home medication: Noncompliant Allergic history: No known allergies ROS: Constitutional: Denies weight loss, fever and chills. HEENT: Denies changes in vision and hearing. Respiratory: Denies shortness of breath and cough Cardiovascular: Denies chest discomfort or palpitations GI: Denies abdominal pain, nausea, vomiting and diarrhea. : Denies dysuria and urinary frequency. Musculoskeletal: Bilateral lower extremity swelling and pain. Skin: Denies rash and pruritus. Neurological: Denies dizziness, headache, vision or hearing problems 03/03/2025: Patient was examined at bedside today. Wound Care on board, patient continued to complain of pain Objective vital signs Vital Sign Date Time Temp Pulse Resp B/P (MAP) Pulse Ox O2 Delivery O2 Flow Rate FiO2 03/03/25 13:28 97.7 79 20 143/100 (114) 95 97.7 03/03/25 05:20 2.0 28 03/03/25 03:36 Nasal Cannula* medications Current Medications Medications Dose Ordered Sig/Fartun Route Start Time Stop Time Status Last Admin Dose Admin Sodium Chloride 10 ml Q8HR IV 03/03/25 06:00 03/03/25 14:22 10 ML Enoxaparin Sodium 40 mg DAILY SC 03/03/25 10:00 Acetaminophen 650 mg Q6HP PRN PO 03/03/25 04:45 Vancomycin HCl 0 ml @ 0 mls/hr PER PHARMACY IV 03/03/25 04:45 Ceftriaxone Sodium 50 ml @ 100 mls/hr DAILY@09 IV 03/03/25 09:00 UNV Diagnostic Test (Pha) 1 strip ACHS 03/03/25 07:00 03/03/25 11:59 1 STRIP Insulin Human Regular ACHS SC 03/03/25 07:00 03/03/25 05:59 3 UNITS Dextrose 50 ml UD PRN IV 03/03/25 04:45 Levalbuterol HCl 1.25 mg Q4HPRN NEB 03/03/25 06:00 Ipratropium [place] 0.5 mg Q4HPRN PRN NEB 03/03/25 04:45 Acetaminophen/ Hydrocodone Bitart 1 tab Q6HPRN PRN PO 03/03/25 04:45 Cefepime HCl 50 ml @ 12.5 mls/hr Q8HR IV 03/03/25 14:00 03/03/25 16:09 12.5 MLS/HR Furosemide 40 mg BIDD IV 03/03/25 18:00 Magnesium Sulfate/ Dextrose 100 ml @ 100 mls/hr Q1HR IV 03/03/25 15:00 03/03/25 16:59 Vancomycin HCl 250 ml @ 166.667 mls/hr Q12H IV 03/03/25 18:00 Examination General: Patient alert and oriented in person, place and time. Patient drowsy on bedside. HEENT: Normocephalic, atraumatic, moist mucous membranes Respiratory/pulmonary: Crackles heard bilaterally. Cardiovascular: Distant heart sounds Abdomen: Tender Umbilical hernia with thickening of skin around the umbilicus. Extremities: Previous incision Scar on left thigh. Dorsal ulcer on left foot, draining yellow discharge. Right foot plantar ulcer, with necrotic base, draining foul-smelling discharge. Right foot swollen, erythematous, Charcot deformity present. Skin: No rashes or pruritus, there is no sacral edema present at this time. Neurological: Intact cranial nerves with no focal neurologic deficits laboratory and microbiology Laboratory Tests 03/03/25 05:51 Test 03/03/25 05:51 Range/Units Serum Glucose 157 H 74-106 mg/dL Problem List/Assessment/Plan Problem List/Assessment/Plan Acute CHF exacerbation, HFrEF (EF 10%) Advanced heart failure noncompliant to GDMT Acute hypoxic respiratory failure likely due to above CXR: Cardiomegaly with moderate pulmonary vascular congestion. On 2 L oxygen supplementation Furosemide 40 mg IV b.i.d. with strict I&O Levalbuterol 1.25 mg neb q4h, Ipratropium 0.5 mg neb COVID 19, influenza negative Echocardiogram pending Bilateral lower extremity cellulitis Chronic ulcer of plantar surface of right midfoot likely due to complicated by uncontrolled diabetes Chronic nonhealing ulcer on dorsal surface of left foot Charcot arthropathy right foot Wound consult Blood culture, MRSA screen ordered Pain management with acetaminophen 650 mg po q6h and [place] 1 tab po q6h Started on IV vancomycin and cefepime MRI bilateral foot pending Type 2 diabetes mellitus with hyperglycemia, uncontrolled Mild sliding scale A1c 8.0 Obesity, BMI 42.4 kg/m2 I have counseled the patient on [place] lifestyle modifications. History of Polysubstance abuse Pending urinary drug screen Patient counseled at bedside for more than 12 minutes to quit abuse Patient leaving AMA, continue substance abuse undetermined DIET: Cardiac DVT PROPHYLAXIS: Lovenox GI PROPHYLAXIS: Protonix CODE STATUS: Goals of care discussed with patient at bedside for more than 16 minutes. Full code DISPOSITION: Telemetry This medical document was created using an electronic medical record system with [employer] direct computerized dictation system. Although this document has been carefully reviewed, there may still be some phonetic and typographical errors. These areas are purely typographical due to imperfections of the software programs, and do not reflect any compromise in the patient's medical care. Patient's status and plan discussed with the patient. Case discussed with Dr. Figueroa Plan discussed with: Patient, Other (Nurses) Date of Service: Mar 03, 2025 Billing Provider: FRANKLIN PERALES RESIDENT Common Visit Codes: [id number] INP/OBS CARE(HIGH) FRANKLIN PERALES RESIDENT Mar 03, 2025 16:43 SHYANNE FIGUEROA MD Mar 08, 2025 20:32
--- NOTE | 2025-03-03 18:05 | DVH ---
EXAMINATION: MRI MRI L FOOT WO CONTRAST TECHNIQUE: MRI of the left foot was performed without contrast HISTORY: ulcers. Pain and swelling. COMPARISON: MRI MRI R FOOT WO CONTRAST on DOS: 03/03/25, XY R FOOT 2 VIEW XRAY on DOS: 05/17/23 FINDINGS: Generalized soft tissue edema throughout the foot. No focal fluid collections. No marrow edema to suggest acute osteomyelitis. Flexor and extensor tendons are intact. No tenosynovitis. Diffuse intramuscular edema. No obvious whitney's neuroma IMPRESSION: Diffuse soft tissue edema without abscess or osteomyelitis. Diffuse intramuscular edema most commonly related to a diabetic neuropathy.
[2025-03-03] MEDS: MAGNESIUM SULFATE 1GM/100ML 100 ML IV SCH (18:06)
[2025-03-03] MEDS: FUROSEMIDE 40 MG/4 ML VIAL IV SCH (18:07)
[2025-03-03] MEDS: VANCOMYCIN 1.5GM/250ML 250 ML IV SCH (18:07)
--- NOTE | 2025-03-03 18:54 | DVH ---
EXAMINATION: MRI MRI R FOOT WO CONTRAST TECHNIQUE: MRI of the right foot was performed without intravenous contrast. HISTORY: ulcers COMPARISON: MRI MRI L FOOT WO CONTRAST on DOS: 03/03/25, XY R FOOT 2 VIEW XRAY on DOS: 05/17/23 FINDINGS: Extensive bone marrow edema and destructive bony changes throughout the great toe proximal phalanx as well as throughout the 1st metatarsal. Otherwise no definite bone marrow edema. Severe diffuse soft tissue edema. No obvious focal fluid collection. Please note contrast was not adm inistered. Flexor extensor tendons appear intact. No tenosynovitis. Diffuse intramuscular edema. IMPRESSION: Diffuse osteomyelitis throughout the 1st metatarsal and great toe. Diffuse soft tissue edema. Diffuse intramuscular edema.
[2025-03-03 19:50] LABS: Albumin 3.3 g/dL (3.2-4.8); Alkaline Phosphatase 106.0 U/L (46-116); Magnesium 1.8 mg/dL (1.6-2.6); Total Protein 7.7 g/dL (5.7-8.2)
[2025-03-03 19:51] LABS: Bilirubin, Total 0.7 mg/dL (0.2-1.0)
--- NOTE | 2025-03-03 20:01 | DVH ---
BILATERAL Lower Extremity Arterial Duplex Date: 03/03/2025 06:28 PM Clinical History: R/o PAD Comparison: None Technique: Duplex Doppler evaluation including color Doppler and spectral/pulsed waveform analysis of the lower extremity arteries was performed. Finding: RIGHT: Peak systolic velocities are as follows: INSTRUCTIONAL MATERIALS DIRECTOR 101 cm/s triphasic waveform Deep femoral 77 cm/s biphasic waveform SFA proximal 118 cm/s triphasic waveform SFA mid-portion 102 cm/s triphasic waveform SFA distal 71 cm/s triphasic waveform Popliteal: Popliteal artery proximally: 75 cm/sec triphasic waveform Popliteal artery distally 71 cm/s; triphasic waveform Posterior tibial 114 cm/s triphasic waveform Anterior tibial 148 cm/s triphasic waveform Dorsalis pedis nonvisualized LARGEST RIGHT INGUINAL LYMPH NODE 5.9 CM The waveforms are biphasic and triphasic waveforms throughout the right lower extremity. Dorsalis ped is not visualized.. LEFT: Peak systolic velocities are as follows: INSTRUCTIONAL MATERIALS DIRECTOR 191 cm/s triphasic waveform Deep femoral 56 cm/s triphasic waveform SFA proximal 123 cm/s triphasic waveform SFA mid-portion 115 cm/s triphasic waveform SFA distal 116 cm/s triphasic waveform Popliteal: Proximal popliteal artery: 107 cm/s triphasic waveform Distal popliteal artery: 111 cm/sec ; triphasic waveform Posterior tibial 91 cm/s triphasic waveforms Anterior tibial 95 cm/s triphasic waveform Dorsalis pedis non visible LARGEST LEFT INGUINAL LYMPH NODE 3.2 CM The waveforms are triphasic waveform throughout. REFERENCE VALUES, [facility] ([facility]) vascular Imaging Lab Criteria: Peak systolic velocity ranges (in cm/sec) are as follows: <150 cm/s - <20 % stenosis 150-200 cm/s - 20-49% stenosis 200-300 cm/s - 50-75% stenosis >300 cm/s -> 75% stenosis IMPRESSION: 1. There is no evidence for peripheral vascular insufficiency in the right lower extremity. Dorsalis pedis not visualized due to bandaging 2. There is no evidence for peripheral vascular insufficiency in the left lower extremity. Dorsalis p tristian not visualized due to bandaging. 3. No significant focal stenosis is identified.
[2025-03-03 20:03] LABS: Alanine Aminotransferase 28.0 U/L (7-40); Bilirubin, Direct 0.4 mg/dL (<0.3)
[2025-03-04] VITALS (14 sets, daily range): BP systolic 102–150; BP diastolic 53–112; PULSE 52–111; RESP 16–22; TEMP 97.3–98.9; O2SAT 92–99
--- NOTE | 2025-03-04 00:21 | DVHINCON2 ---
Date of service: Mar 03, 2025 Referring Physician Gerald Reason for Consultation Advance heart failure management, GDMT and management History of Present Illness This is a 54-year-old male with a PMH of Asthma, CHF, COPD, DM, MT, TIA who presented to the ED with a complaint of pain and swelling to bilateral lower extremities. Patient states he has been dealing with wounds on his lower legs for months. States he has been homeless, he was prescribed medications for diabetes and CHF. He says he stopped taking approximate one year ago. States he stopped taking them because they cause more side effects and they are worth taking. He thought he can manage treating his wounds on his feet on his own but he has not been able to. He says it become more painful more swollen. Says his multiple wounds on the right foot. Patient also states he has been dealing with shortness of breath over the last 4-5 months. Says he has been getting worse over the last three four days. No fever no chills. Nothing makes it better, exertion makes it worse. Patient is ambulating with a wheelchair. Chest x-ray shows cardiomegaly with moderate pulmonary vascular congestion. Patient was admitted to the hospital. I am asked to consult on this patient. Family History: Cardiovascular disease G8 MOTHER Allergies: Coded Allergies: NO KNOWN ALLERGIES (Unverified , 05/17/23) Current Medications Current Medications Medications (Trade) Dose Ordered Sig/Fartun Route PRN Reason Start Time Stop Time Status Last Admin Sodium Chloride (Saline Lock Ns) 10 ml Q8HR IV 03/03/25 06:00 03/03/25 14:22 Enoxaparin Sodium (Lovenox) 40 mg DAILY SC 03/03/25 10:00 Acetaminophen (Tylenol Tablet) 650 mg Q6HP PRN PO PAIN SCALE 1-3 OR TEMP>100.4 03/03/25 04:45 Vancomycin HCl 0 ml @ 0 mls/hr PER PHARMACY IV 03/03/25 04:45 Ceftriaxone Sodium 50 ml @ 100 mls/hr DAILY@09 IV 03/03/25 09:00 UNV Furosemide (Lasix Injection) 40 mg DAILY IV 03/03/25 10:00 03/03/25 11:21 DC Diagnostic Test (Pha) (Accu-Chek Comfort Curve T) 1 strip ACHS 03/03/25 07:00 03/03/25 11:59 Insulin Human Regular (InsuLIN R) ACHS SC 03/03/25 07:00 03/03/25 05:59 Dextrose 50 ml UD PRN IV Blood Sugar LESS THAN 60 03/03/25 04:45 Levalbuterol HCl (Xopenex Medneb) 1.25 mg Q4HPRN NEB 03/03/25 06:00 Ipratropium [place] (Atrovent Medneb) 0.5 mg Q4HPRN PRN NEB SHORTNESS OF BREATH 03/03/25 04:45 Acetaminophen/ Hydrocodone Bitart ([place] 5/325MG Tab) 1 tab Q6HPRN PRN PO MODERATE PAIN (4-6 PAIN SCALE) 03/03/25 04:45 Ceftriaxone Sodium 50 ml @ 100 mls/hr DAILY@09 IV 03/04/25 05:00 03/03/25 06:32 DC Cefepime HCl 50 ml @ 12.5 mls/hr Q8HR IV 03/03/25 14:00 Vancomycin HCl 250 ml @ 166.667 mls/hr Q12H IV 03/03/25 16:00 Furosemide (Lasix Injection) 40 mg BIDD IV 03/03/25 18:00 Magnesium Sulfate/ Dextrose 100 ml @ 100 mls/hr Q1HR IV 03/03/25 15:00 03/03/25 16:59 Review of Systems Constitutional: reports: malaise, weakness; denies: chills, diaphoresis, fati karina, fever, sweats, others EENTM: denies: blurred vision, double vision, ear bleeding, ear discharge, ear drainage, ear pain, ear ringing, eye pain, eye redness, hearing loss, mouth pain, mouth swelling, nasal discharge, nose bleeding, nose congestion, nose pain, photophobia, tearing, throat pain, throat swelling, voice changes, others Respiratory: reports: SOB at rest, SOB with excertion; denies: cough, hemoptysis, orthopnea, shortness of breath, stridor, wheezing, others Cardiovascular: denies: chest pain, dizzy spells, diaphoresis, Dyspnea on exertion, edema, irregular heart beat, left arm pain, lightheadedness, palpitations, PND, syncope, others Gastrointestinal: denies: abdomen distended, abdominal pain, blood streaked bowels, constipated, diarrhea, dysphagia, difficulty swallowing, hematemesis, melena, nausea, poor appetite, poor fluid intake, rectal bleeding, rectal pain, vomiting, others Genitourinary: denies: burning, dysuria, flank pain, frequency, hematuria, incontinence, penile discharge, penile sore, pain, testicle pain, testicle swelling, urgency, others Neurological: denies: dizziness, fainting, headache, left sided numbness, left sided weakness, numbness, paresthesia, pre-existing deficit, right sided numbness, right sided weakness, seizure, speech problems, tingling, tremors, weakness, others Musculoskeletal: denies: back pain, gout, joint pain, joint swelling, muscle pain, muscle stiffness, neck pain, others Integumetry: denies: bruises, change in color, change in hair/nails, dryness, laceration, lesions, lumps, rash, wounds, others Allergic/Immunocompromised: reports: Difficulty Healing, Frequent Infections; denies: Hives, Itching, others Hematologic/Lymphatic: denies: anemia, blood clots, easy bleeding, easy bruising, swollen glands, others Vital Signs Vital Signs Date Time Temp Pulse Resp B/P (MAP) Pulse Ox O2 Delivery O2 Flow Rate FiO2 03/03/25 13:28 97.7 79 20 143/100 (114) 95 97.7 03/03/25 05:20 2.0 28 03/03/25 03:36 Nasal Cannula* Physical Exam GENERAL: Alert and oriented x 3. No acute distress. EYES: PERRL, EOMI. Anicteric. HENT: Moist mucous membranes. LUNGS: Clear to auscultation bilaterally. CARDIOVASCULAR: Regular rate and rhythm. ABDOMEN: Soft, nontender and nondistended. EXTREMITIES: Lower extremity edema, pedal edema, bilateral feet swelling, bilateral lower extremity tenderness, right foot Charcot deformity, Chronic ulcer of plantar surface of right midfoot. NEUROLOGIC: No focal neurological deficits. SKIN: Warm, dry. Labs/Diagnostic Data Labs Test 03/03/25 11:57 03/03/25 09:10 03/03/25 05:51 03/03/25 02:10 Range/Units POC Glucose 144 H 70-106 mg/dl Influenza Type A Antigen Negative Negative Influenza Type B Antigen Negative Negative SARS-CoV-2 Antigen (Rapid) Negative NEGATIVE White Blood Count 9.9 4.4-10.8 10^3/uL Red Blood Count 4.29 L 4.5-5.90 10^6/uL Hemoglobin 11.5 L 13.5-17.5 g/dL Hematocrit 36.8 L 41.0-53.0 % Mean Corpuscular Volume 85.9 80.0-100.0 fL Mean Corpuscular Hemoglobin 26.8 L 28.0-32.0 pg Mean Corpuscular Hemoglobin Concent 31.2 L 32.0-36.0 g/dL Red Cell Distribution Width 16.9 H 11.8-14.3 % Platelet Count 367 140-450 10^3/uL Mean Platelet Volume 7.8 6.9-10.8 fL Neutrophils (%) (Auto) 78.8 37.0-80.0 % Lymphocytes (%) (Auto) 11.5 10.0-50.0 % Monocytes (%) (Auto) 8.2 0.0-12.0 % Eosinophils (%) (Auto) 0.8 0.0-7.0 % Basophils (%) (Auto) 0.7 0.0-2.0 % Neutrophils # (Auto) 7.8 1.6-8.6 10 ^3/uL Lymphocytes # (Auto) 1.1 0.4-5.4 10 ^3/uL Monocytes # (Auto) 0.8 0-1.3 10 ^3/uL Eosinophils # (Auto) 0.1 0-0.8 10 ^3/uL Basophils # (Auto) 0.1 0-0.2 10 ^3/uL Nucleated Red Blood Cells 0.1 % Sodium Level 139 136-145 mmol/L Potassium Level 4.1 3.5-5.1 mmol/L Chloride Level 105 98-107 mmol/L Carbon Dioxide Level 25 20-31 mmol/L Anion Gap 9 5-15 Blood Urea Nitrogen 9 9-23 mg/dL Creatinine 1.12 0.700-1.30 mg/dL Glomerular Filtration Rate Calc 78 >90 mL/min BUN/Creatinine Ratio 8.0 L 10.0-20.0 Serum Glucose 157 H 74-106 mg/dL Hemoglobin A1c 8.0 H <5.7 % A1C Calcium Level 8.5 L 8.7-10.4 mg/dL Magnesium Level 1.8 1.6-2.6 mg/dL Total Bilirubin 0.8 0.2-1.0 mg/dL Direct Bilirubin 0.5 H <0.3 mg/dL Aspartate Amino Transferase (AST) 25 13-40 U/L Alanine Aminotransferase (ALT) 22 7-40 U/L Alkaline Phosphatase 98 46-116 U/L Total Protein 7.9 5.7-8.2 g/dL Albumin 3.4 3.2-4.8 g/dL Lactic Acid Level 1.4 0.4-2.0 mmol/L B-Type Natriuretic Peptide 981.95 0-100 pg/mL Assessment Acute CHF exacerbation, HFrEF (EF 10%). Advanced heart failure noncompliant to GDMT. Acute hypoxic respiratory failure likely due to above. Bilateral lower extremity cellulitis. Chronic ulcer of plantar surface of right midfoot likely due to complicated by uncontrolled diabetes. Chronic nonhealing ulcer on dorsal surface of left foot. Charcot arthropathy right foot. Type 2 diabetes mellitus with hyperglycemia, uncontrolled. Obesity. History of Polysubstance abuse Plan/Recommendation I agree with your ongoing assessment and care of plan. Telemetry reviewed. Echocardiogram. [place] for pain management. IV antibiotics as ordered. DVT prophylactics. Diuretics with Lasix. Additional plan as per the hospital course. A total of 45 minutes was spent reviewing the patient record, examining the patient, making a diagnostic and therapeutic plan, discussing this plan with medical personnel, following up on diagnostic studies and following the patient for clinical stability excluding any and all procedures. At least 50% of this time was spent in direct, [id number] contact. Plan discussed with: Patient MIGUEL OLIVIER MD Mar 03, 2025 15:16
--- NOTE | 2025-03-04 06:43 | DVH ---
CHEST RADIOGRAPH Indication: Pulmonary Edema Technique: Single frontal view of the chest was obtained Comparison: XY CHEST XRAY 1 VIEW on DOS: 03/03/25. FINDINGS: Lines and Tubes: None Lungs: No focal consolidation. Pulmonary vascular congestion increased. Pleura: No effusion. No pneumothorax. Cardiomediastinal contours: Cardiomegaly noted. Bones: No acute osseous abnormality. IMPRESSION: 1. Increased pulmonary vascular congestion. Stable cardiomegaly.
--- NOTE | 2025-03-04 09:12 | DVHPNRES ---
Progress Note Date Seen: Mar 04, 2025 Resident Creating Document: FRANKLIN PERALES RESIDENT Medical Necessity Reason Pt with a Central, PICC or Fol: No Subjective Review of Systems History on presentation: Patient is a 54-year-old homeless male with past medical history of CHF (EF 10%), COPD, DM, CA and stroke, presented to [facility] ED with complaint of pain and swelling in bilateral lower extremities. Patient is a poor historian. Patient complains of pain in bilateral thighs, relieved with walking. He also reports having nonhealing ulcers on both lower legs for several months. Patient was previously prescribed medications for diabetes and CHF, which he discontinued approximately one year ago due to perceived side effects and lack of benefit. He reports worsening pain and swelling in his both legs, particularly on the right foot. He reports progressive shortness of breath over the past 4 months, with worsening symptoms over the last 4 days. He denies fever, chills, nausea, vomiting. On arrival, patient had tachycardic, tachypnea and hypoxic, using 2 L Oxygen NC. Initial labs show normocytic anemia and serum glucose 158. Chest X-ray shows cardiomegaly with moderate pulmonary vascular congestion. Previous hospitalization: PMHx: CHF (EF 10%), COPD, DM, CA, stroke, HTN PSHx: Hernia Repair Social history: Smoke: >40 years 1 pack a day. Alcohol: Occasionally. Drug: Methamphetamine, heroin, cocaine. Unhoused Home medication: Noncompliant Allergic history: No known allergies ROS: Constitutional: Denies weight loss, fever and chills. HEENT: Denies changes in vision and hearing. Respiratory: Denies shortness of breath and cough Cardiovascular: Denies chest discomfort or palpitations GI: Denies abdominal pain, nausea, vomiting and diarrhea. : Denies dysuria and urinary frequency. Musculoskeletal: Bilateral lower extremity swelling and pain. Skin: Denies rash and pruritus. Neurological: Denies dizziness, headache, vision or hearing problems 03/03/2025: Wound Care on board, patient continued to complain of pain. 03/04/2025: Patient was examined at bedside today. Patient continues to complain of pain, foul-smelling discharge from his foot ulcer. MRI done yesterday shows osteomyelitis of right foot, podiatry consulted. Objective vital signs Vital Sign Date Time Temp Pulse Resp B/P (MAP) Pulse Ox O2 Delivery O2 Flow Rate FiO2 03/04/25 08:07 92 Room Air 03/04/25 08:07 0 21 03/04/25 05:59 102/53 03/04/25 05:11 97.3 52 18 97.3 Total Intake and Output 03/03/25 03/03/25 03/04/25 15:00 23:00 07:00 Intake Total 970 ml 400 ml Output Total 500 ml 1400 ml Balance 470 ml -1000 ml medications Current Medications Medications Dose Ordered Sig/Fartun Route Start Time Stop Time Status Last Admin Dose Admin Sodium Chloride 10 ml Q8HR IV 03/03/25 06:00 03/04/25 06:02 10 ML Enoxaparin Sodium 40 mg DAILY SC 03/03/25 10:00 Acetaminophen 650 mg Q6HP PRN PO 03/03/25 04:45 Vancomycin HCl 0 ml @ 0 mls/hr PER PHARMACY IV 03/03/25 04:45 Ceftriaxone Sodium 50 ml @ 100 mls/hr DAILY@09 IV 03/03/25 09:00 UNV Diagnostic Test (Pha) 1 strip ACHS 03/03/25 07:00 03/03/25 21:17 1 STRIP Insulin Human Regular ACHS SC 03/03/25 07:00 03/03/25 05:59 3 UNITS Dextrose 50 ml UD PRN IV 03/03/25 04:45 Levalbuterol HCl 1.25 mg Q4HPRN NEB 03/03/25 06:00 Ipratropium [place] 0.5 mg Q4HPRN PRN NEB 03/03/25 04:45 Acetaminophen/ Hydrocodone Bitart 1 tab Q6HPRN PRN PO 03/03/25 04:45 Cefepime HCl 50 ml @ 12.5 mls/hr Q8HR IV 03/03/25 14:00 03/03/25 21:17 12.5 MLS/HR Furosemide 40 mg BIDD IV 03/03/25 18:00 03/03/25 18:07 40 MG Vancomycin HCl 250 ml @ 166.667 mls/hr Q12H IV 03/03/25 18:00 03/04/25 05:10 166.667 MLS/HR Examination General: Patient alert and oriented in person, place and time. HEENT: Normocephalic, atraumatic, moist mucous membranes Respiratory/pulmonary: Crackles heard bilaterally. Cardiovascular: Distant heart sounds Abdomen: Tender Umbilical hernia with thickening of skin around the umbilicus. Extremities: Previous incision Scar on left thigh. Dorsal ulcer on left foot, draining yellow discharge. Right foot plantar ulcer, with necrotic base, draining foul-smelling discharge. Right foot swollen, erythematous, Charcot deformity present. Skin: No rashes or pruritus, there is no sacral edema present at this time. Neurological: Intact cranial nerves with no focal neurologic deficits laboratory and microbiology Laboratory Tests 03/03/25 05:51 Test 03/03/25 05:51 Range/Units Serum Glucose 157 H 74-106 mg/dL Microbiology Date/Time Source Procedure Growth Status 03/03/25 09:22 Foot Right Gram Stain Pending Resulted 03/03/25 09:22 Foot Right Wound Culture - Preliminary Resulted 03/03/25 02:10 Blood Blood Culture - Preliminary NO GROWTH AFTER 24 HOURS OF INCUBATION. Resulted Problem List/Assessment/Plan Problem List/Assessment/Plan Acute CHF exacerbation, HFrEF (EF 10%) Advanced heart failure noncompliant to GDMT Acute hypoxic respiratory failure likely due to above CXR: Cardiomegaly with moderate pulmonary vascular congestion. On 2 L oxygen supplementation Furosemide 40 mg IV b.i.d. with strict I&O Levalbuterol 1.25 mg neb q4h, Ipratropium 0.5 mg neb COVID 19, influenza negative Echocardiogram pending Osteomyelitis right 1st metatarsal, right great toe Bilateral lower extremity cellulitis Chronic ulcer of plantar surface of right midfoot likely due to complicated by uncontrolled diabetes Chronic nonhealing ulcer on dorsal surface of left foot Charcot arthropathy right foot MRI shows diffuse osteomyelitis throughout 1st metatarsal and great toe. Diffuse soft tissue edema in bilateral feet. Diffuse intramuscular edema present in bilateral feet. Wound consult Blood culture, MRSA screen ordered Pain management with acetaminophen 650 mg po q6h and [place] 1 tab po q6h Continue IV vancomycin and cefepime Podiatry consulted Type 2 diabetes mellitus with hyperglycemia, uncontrolled Mild sliding scale A1c 8.0 Obesity, BMI 42.4 kg/m2 I have counseled the patient on [place] lifestyle modifications. History of Polysubstance abuse Pending urinary drug screen Patient counseled at bedside for more than 12 minutes to quit abuse Patient leaving AMA, continue substance abuse undetermined DIET: Cardiac DVT PROPHYLAXIS: Lovenox GI PROPHYLAXIS: Protonix CODE STATUS: Goals of care discussed with patient at bedside for more than 16 minutes. Full code DISPOSITION: Telemetry This medical document was created using an electronic medical record system with [email or web address] direct computerized dictation system. Although this document has been carefully reviewed, there may still be some phonetic and typographical errors. These areas are purely typographical due to imperfections of the software programs, and do not reflect any compromise in the patient's medical care. Patient's status and plan discussed with the patient. Case discussed with Dr. Figueroa Plan discussed with: Patient, Other (Nurses) My Orders My Orders Orders - FRANKLIN PERALES Procedure Category Date Status Time Basic Metabolic Panel LAB 03/04/25 Logged 04:00 Bilat Low Ext Art US 03/03/25 Resulted Duplex 17:29 * Wound Consult CONS 03/04/25 Transmitted Date of Service: Mar 04, 2025 Billing Provider: SHYANNE FIGUEROA MD Common Visit Codes: [id number] INP/OBS CARE(HIGH) FRANKLIN PERALES RESIDENT Mar 04, 2025 09:12 SHYANNE FIGUEROA MD Mar 08, 2025 20:32
[2025-03-04 10:04] LABS: Hematocrit 36.6 % (41.0-53.0); Hemoglobin 11.5 g/dL (13.5-17.5); Mean Corpuscular Hemoglobin 27.0 pg (28.0-32.0); Mean Corpuscular Volume 86.0 fL (80.0-100.0); Nucleated Red Blood Cells % 0.0 %
[2025-03-04 10:13] LABS: Anion Gap 8 (5-15); Carbon Dioxide 25 mmol/L (20-31); Chloride 104 mmol/L (98-107); Potassium 4.2 mmol/L (3.5-5.1); Sodium 137 mmol/L (136-145)
[2025-03-04 10:15] LABS: Calcium 8.4 mg/dL (8.7-10.4)
[2025-03-04 10:19] LABS: BUN/Creatinine Ratio 8.7 (10.0-20.0); Blood Urea Nitrogen 9 mg/dL (9-23)
[2025-03-04 10:24] LABS: Glucose 165 mg/dL (74-106)
[2025-03-04] MEDS: HYDROcodone-ACET 5/325MG TAB PO PRN (18:15)
--- NOTE | 2025-03-04 19:32 | DVHSR ---
APPROVED REPORT EXAM: Two-dimensional and M-mode echocardiogram with Doppler, color Doppler and Optison. Blood Pressure: 136/87 mmHg INDICATION Chest Pain RISK FACTORS Height: 6'7", Weight: 376 DIMENSIONS LVDd6.9 (3.8-5.7cm)LA (2D)5.1 (1.9-4.0cm)Aortic Root3.1 (2.0-3.7cm) LVDs6.5 (2.5-4.0cm)LA (MM) (1.9-4.0cm)Aortic Cusp Exc2.0 (1.5-2.0cm) EF (%) 13.0 (55-70%)Rt. Atrium5.9 (1.9-4.0cm)Asc. Aorta cm IVSd1.0 (0.7-1.1cm)RV (D) (1.8-2.4cm) PWd1.1 (0.7-1.1cm) Mitral Valve MitralMitral Stenosis E/A ratio0.02D MVAcm2 Aortic Valve Aortic ValveAortic Stenosis V10.75m/Megan Mean GR.4mmHg V21.18m/Megan Peak GR.6mmHg LVOT Diameter2.4 (1.8-2.4cm)Doppler AVA2.87cm2 Tricuspid Valve TR Velocity3.16m/s [id number] Other Information Quality : Technically LimitedRhythm : Technically limited study due to body habitus. Conclusion Sinus rhythm. Biatrial and biventricular enlargement. Aortic root enlargement. Valves are normal. Left ventricular systolic performance is markedly diminished. EF is about 10-15% with severe global hypokinesis. Diminished RV function. Contrast echocardiogram confirms left ventricular function. [id number] tricuspid regurgitation with pulmonary hypertension. Right ventricular systolic p ressure of 55-60 mmHg. No pericardial effusion masses or vegetations.
[2025-03-04] MEDS: LABETALOL HCL 20 MG/4 ML VL IV ONE (21:45)
[2025-03-04] MEDS: MUPIROCIN 2% OINT 15gm or 22gm FOR MRSA NARES EACHNOSTRI SCH (22:00)
[2025-03-05] VITALS (13 sets, daily range): BP systolic 94–145; BP diastolic 61–92; PULSE 86–111; RESP 16–24; TEMP 97.9–99.6; O2SAT 86–100
[2025-03-05] MEDS: IPRATROPIUM BROM 0.5 MG/2.5ML INH SOL NEB PRN (01:21)
[2025-03-05 06:34] LABS: Hematocrit 38.3 % (41.0-53.0); Hemoglobin 12.1 g/dL (13.5-17.5); Mean Corpuscular Hemoglobin 26.8 pg (28.0-32.0); Mean Corpuscular Volume 84.7 fL (80.0-100.0); Nucleated Red Blood Cells % 0.1 %
[2025-03-05 06:47] LABS: Anion Gap 13 (5-15); Carbon Dioxide 24 mmol/L (20-31); Chloride 101 mmol/L (98-107); Potassium 4.1 mmol/L (3.5-5.1); Sodium 138 mmol/L (136-145)
[2025-03-05 06:48] LABS: Calcium 8.5 mg/dL (8.7-10.4)
[2025-03-05 06:53] LABS: BUN/Creatinine Ratio 10.7 (10.0-20.0); Blood Urea Nitrogen 12 mg/dL (9-23); Glucose 119 mg/dL (74-106)
[2025-03-05 10:22] LABS: Base Excess 1.9 mmol/L (-2.0-3.0)
--- NOTE | 2025-03-05 11:12 | MEDREC ---
[facility] Intervention Section I [facility] Intervention: Review courses of therapy (MRSA NARES (+), RECOMMEND ADD MUPIROCIN EN BID) SHELL MOSLEY PHARMACIST Mar 04, 2025 12:56
--- NOTE | 2025-03-05 11:29 | DVHPN2 ---
Progress Note - Dictate Date Seen: Mar 04, 2025 Medical Necessity Reason Pt with a Central, PICC or Fol: No Subjective Patient was seen and evaluated in follow up. Patient is complaining of pain and foul-smelling discharge from his foot ulcer. MRI right foot showed osteomyelitis of the right foot. Chest x-ray shows increased pulmonary vascular congestion, stable cardiomegaly. Echocardiogram shows LV EF of 10-15%, diminished RV function, [id number] tricuspid regurgitation with pulmonary hypertension. Telemetry reviewed. vital signs Vital Sign Date Time Temp Pulse Resp B/P (MAP) Pulse Ox O2 Delivery O2 Flow Rate FiO2 03/04/25 10:05 95 Room Air 03/04/25 10:05 0 21 03/04/25 09:00 98.0 104 22 142/93 (109) 98.0 Total Intake and Output 03/03/25 03/03/25 03/04/25 15:00 23:00 07:00 Intake Total 970 ml 400 ml Output Total 500 ml 1400 ml Balance 470 ml -1000 ml medications Current Medications Medications Dose Ordered Sig/Fartun Route Start Time Stop Time Status Last Admin Dose Admin Sodium Chloride 10 ml Q8HR IV 03/03/25 06:00 03/04/25 06:02 10 ML Enoxaparin Sodium 40 mg DAILY SC 03/03/25 10:00 Acetaminophen 650 mg Q6HP PRN PO 03/03/25 04:45 Vancomycin HCl 0 ml @ 0 mls/hr PER PHARMACY IV 03/03/25 04:45 Ceftriaxone Sodium 50 ml @ 100 mls/hr DAILY@09 IV 03/03/25 09:00 UNV Diagnostic Test (Pha) 1 strip ACHS 03/03/25 07:00 03/04/25 11:27 1 STRIP Insulin Human Regular ACHS SC 03/03/25 07:00 03/03/25 05:59 3 UNITS Dextrose 50 ml UD PRN IV 03/03/25 04:45 Levalbuterol HCl 1.25 mg Q4HPRN NEB 03/03/25 06:00 Ipratropium [place] 0.5 mg Q4HPRN PRN NEB 03/03/25 04:45 Acetaminophen/ Hydrocodone Bitart 1 tab Q6HPRN PRN PO 03/03/25 04:45 Cefepime HCl 50 ml @ 12.5 mls/hr Q8HR IV 03/03/25 14:00 03/03/25 21:17 12.5 MLS/HR Furosemide 40 mg BIDD IV 03/03/25 18:00 03/03/25 18:07 40 MG Vancomycin HCl 250 ml @ 166.667 mls/hr Q12H IV 03/03/25 18:00 03/04/25 05:10 166.667 MLS/HR objective GENERAL: Alert and oriented x 3. No acute distress. EYES: PERRL, EOMI. Anicteric. HENT: Moist mucous membranes. LUNGS: Clear to auscultation bilaterally. CARDIOVASCULAR: Regular rate and rhythm. ABDOMEN: Soft, nontender and nondistended. EXTREMITIES: Lower extremity edema, pedal edema, bilateral feet swelling, bilateral lower extremity tenderness, right foot Charcot deformity, Chronic ulcer of plantar surface of right midfoot. NEUROLOGIC: No focal neurological deficits. SKIN: Warm, dry. laboratory and microbiology Laboratory Tests 03/04/25 09:38 Test 03/04/25 09:38 Range/Units Serum Glucose 165 H 74-106 mg/dL Problem List Acute CHF exacerbation, HFrEF (EF 10%). Advanced heart failure noncompliant to GDMT. Acute hypoxic respiratory failure likely due to above. Bilateral lower extremity cellulitis. Chronic ulcer of plantar surface of right midfoot likely due to complicated by uncontrolled diabetes. Chronic nonhealing ulcer on dorsal surface of left foot. Charcot arthropathy right foot. Type 2 diabetes mellitus with hyperglycemia, uncontrolled. Obesity. History of Polysubstance abuse Assessment/Plan Continued all current supportive medical care. [place] for pain management. DVT prophylactics. Diuretics with Lasix. IV antibiotics as ordered. Additional plan as per the hospital course. Plan discussed with: Patient MIGUEL OLIVIER MD Mar 04, 2025 11:38
--- NOTE | 2025-03-05 11:32 | DVH ---
INDICATION: rule out aspiration TECHNIQUE: Frontal view of the chest. COMPARISON: XY CHEST XRAY 1 VIEW on DOS: 03/04/25, XY CHEST XRAY 1 VIEW on DOS: 03/03/25, XY CHEST XR AY 1 VIEW on DOS: 01/18/25, XY CHEST XRAY 1 VIEW on DOS: 05/17/23 FINDINGS: Cardiomegaly. The heart and mediastinal contours are grossly unremarkable. There is no evidence of p leural disease. The lungs are clear. The bony structures of the chest are intact without fracture. IMPRESSION: 1. Cardiomegaly with mild CHF
--- NOTE | 2025-03-05 11:49 | DVHCONRES ---
Date Seen: Mar 05, 2025 Reason for Consultation Bilateral foot wounds History of Present Illness Patient is a 54-year-old homeless male with past medical history of CHF (EF 10%), COPD, DM, [place] and stroke, presented to [facility] ED with complaint of pain and swelling in bilateral lower extremities. He reports having wounds on both lower legs for several months. Patient was previously prescribed medications for diabetes and CHF, which he discontinued approximately one year ago due to perceived side effects and lack of benefit. He reports worsening pain and swelling in his both legs, particularly on the right foot. He reports progressive shortness of breath over the past 4 months, with worsening symptoms over the last 4 days. On evaluation in the ED, patient is afebrile, tachycardic, tachypnea, hypertensive (141/86 mmHg) and hypoxic, using 2 L Oxygen NC. Initial labs show normocytic anemia and serum glucose 158. Chest X-ray shows cardiomegaly with moderate pulmonary vascular congestion. The patient was started on IV antibiotics and IV fluids. Patient is admitted for further evaluation and management. Past Medical History See H&P Past Surgical History See H&P Family History: Cardiovascular disease G8 MOTHER Allergies: Coded Allergies: NO KNOWN ALLERGIES (Unverified , 05/17/23) Current Medications Current Medications Medications (Trade) Dose Ordered Sig/Fartun Route PRN Reason Start Time Stop Time Status Last Admin Mupirocin (Bactroban 2% Ointment) 1 applic BID EACHNOSTRI 03/04/25 22:00 03/05/25 08:01 DC 03/04/25 22:00 Mupirocin (Bactroban 2% Ointment) 1 applic BID EACHNOSTRI 03/05/25 10:00 03/10/25 09:59 Meropenem 50 ml @ 17 mls/hr Q8HR IV 03/05/25 14:00 UNV Vancomycin HCl 250 ml @ 166.667 mls/hr Q8H IV 03/05/25 19:00 Vital Signs Vital Signs Date Time Temp Pulse Resp B/P (MAP) Pulse Ox O2 Delivery O2 Flow Rate FiO2 03/05/25 09:58 104 20 95 03/05/25 09:50 Room Air 0.0 03/05/25 09:50 21 03/05/25 09:00 97.9 94/61 (72) 97.9 Physical Exam Dermatological: Skin is dry with mild erythema and some maceration around the wound site No gross deformities noted Mild non-pitting edema present bilaterally Multiple bilateral foot wounds with fibrosis and surrounding cellulitis Vascular: Dorsalis pedis and posterior tibial pulses are 1+ bilaterally Capillary refill is under 2 seconds Skin temperature is warm bilaterally Neurologic: Protective sensation is absent on the plantar forefoot bilaterally Monofilament testing reveals decreased sensation in multiple plantar sites Musculoskeletal: Range of motion at the ankle and MTP joints is within normal limits. Strength is 5/5 in all tested muscle groups. Gait is antalgic due to offloading of the affected limb. Labs/Diagnostic Data Labs Test 03/05/25 10:12 03/05/25 06:18 03/05/25 06:08 03/04/25 11:17 Range/Units Blood Gas Specimen Type Arterial Blood Gas Sample Site Right radial Blood Gas Patient Temperature 37.0 Arterial Blood Date Drawn [id number] Arterial Blood pH 7.413 7.350-7.450 Arterial Blood Partial Pressure CO2 42.9 35.0-48.0 mmHg Arterial Blood Partial Pressure O2 45.2 *L 83.0-108.0 mmHg Arterial Blood HCO3 26.8 21.0-28.0 mmol/L Arterial Blood Oxygen Saturation 79.7 *L 94.0-98.0 % Arterial Blood Base Excess 1.9 -2.0-3.0 mmol/L Arterial Blood Oxyhemoglobin 78.2 L 94.0-98.0 % Arterial Blood Carboxyhemoglobin 1.4 0.5-1.5 % Arterial Blood Methemoglobin 0.5 0.0-1.5 % Erich Test Yes Blood Gas Total Hemoglobin 12.10 L 13.5-17.5 g/dL Blood Gas Modality Room air FiO2 % 21.0 Blood Gas Critical Value Read Back Rt gabriele ptit Blood Gas Notified Whom Md. channing dumont Blood Gas Notified Time [id number] Blood Gas Notified By POC Glucose 120 H 70-106 mg/dl White Blood Count 9.9 4.4-10.8 10^3/uL Red Blood Count 4.52 4.5-5.90 10^6/uL Hemoglobin 12.1 L 13.5-17.5 g/dL Hematocrit 38.3 L 41.0-53.0 % Mean Corpuscular Volume 84.7 80.0-100.0 fL Mean Corpuscular Hemoglobin 26.8 L 28.0-32.0 pg Mean Corpuscular Hemoglobin Concent 31.7 L 32.0-36.0 g/dL Red Cell Distribution Width 17.1 H 11.8-14.3 % Platelet Count 423 140-450 10^3/uL Mean Platelet Volume 7.8 6.9-10.8 fL Neutrophils (%) (Auto) 79.6 37.0-80.0 % Lymphocytes (%) (Auto) 9.5 L 10.0-50.0 % Monocytes (%) (Auto) 8.4 0.0-12.0 % Eosinophils (%) (Auto) 1.7 0.0-7.0 % Basophils (%) (Auto) 0.8 0.0-2.0 % Neutrophils # (Auto) 7.9 1.6-8.6 10 ^3/uL Lymphocytes # (Auto) 0.9 0.4-5.4 10 ^3/uL Monocytes # (Auto) 0.8 0-1.3 10 ^3/uL Eosinophils # (Auto) 0.2 0-0.8 10 ^3/uL Basophils # (Auto) 0.1 0-0.2 10 ^3/uL Nucleated Red Blood Cells 0.1 % Sodium Level 138 136-145 mmol/L Potassium Level 4.1 3.5-5.1 mmol/L Chloride Level 101 98-107 mmol/L Carbon Dioxide Level 24 20-31 mmol/L Anion Gap 13 5-15 Blood Urea Nitrogen 12 9-23 mg/dL Creatinine 1.12 0.700-1.30 mg/dL Glomerular Filtration Rate Calc 78 >90 mL/min BUN/Creatinine Ratio 10.7 10.0-20.0 Serum Glucose 119 H 74-106 mg/dL Calcium Level 8.5 L 8.7-10.4 mg/dL Vancomycin Level Trough 6.7 5-10 ug/mL Lactic Acid Level 1.2 0.4-2.0 mmol/L Test 03/03/25 19:20 03/03/25 09:10 03/03/25 05:51 03/03/25 02:10 Range/Units Magnesium Level 1.8 1.6-2.6 mg/dL Total Bilirubin 0.7 0.2-1.0 mg/dL Direct Bilirubin 0.4 H <0.3 mg/dL Aspartate Amino Transferase (AST) 53 H 13-40 U/L Alanine Aminotransferase (ALT) 28 7-40 U/L Alkaline Phosphatase 106 46-116 U/L Troponin I High Sensitivity 43 </=54 ng/L Total Protein 7.7 5.7-8.2 g/dL Albumin 3.3 3.2-4.8 g/dL Thyroid Stimulating Hormone (TSH) 3.76 0.55-4.78 uIU/mL Influenza Type A Antigen Negative Negative Influenza Type B Antigen Negative Negative SARS-CoV-2 Antigen (Rapid) Negative NEGATIVE Hemoglobin A1c 8.0 H <5.7 % A1C B-Type Natriuretic Peptide 981.95 0-100 pg/mL Microbiology Date/Time Source Procedure Growth Status 03/04/25 12:20 Foot Right Gram Stain Pending Resulted 03/04/25 12:20 Foot Right Wound Culture - Preliminary Resulted 03/03/25 02:10 Blood Blood Culture - Preliminary NO GROWTH AFTER 48 HOURS OF INCUBATION. Resulted Problems(with codes): (1) Fever (2) Sepsis (3) Hypertension (4) Elevated lactic acid level (5) CHF exacerbation (6) Chronic ulcer of plantar surface of right midfoot Plan/Recommendation ASSESSMENT: Patient is a _ year old seen on the floor for a worsening ulcer PLAN: - The patients chart was reviewed, clinical findings were discussed with the patient, the etiologies of the conditions were discussed in detail, and a treatment plan was agreed to at this time, with both oral and written instructions provided. - reviewed advanced imaging - patient did not participate in the interview today - recommend 6 weeks IV antibiotics - we will hold off on surgical intervention at this point - can follow up with me as an outpatient - if things worsen can consider I&D with possible amputation All questions were answered and concerns addressed to the patient's satisfaction. The patient was given the phone number to the clinic and was told how to make contact with the clinic should any concerns or questions arise. Patient understands that if any questions or concerns arise prior to the next appointment, we should be contacted immediately. FOLLOW-UP: Continue to follow while inpatient Plan discussed with: Patient Visit Coding Podiatry Date of Service if different f: Mar 05, 2025 Billing Provider: IVAN LINDSEY DPM Podiatry Common Visit Codes: CONSULT ONLY Podiatry Consult Codes: [id number]/OBS CONSLTJ NEW/EST HI 80 IVAN LINDSEYM Mar 05, 2025 11:49
[2025-03-05] MEDS: MUPIROCIN 2% OINT 15gm or 22gm FOR MRSA NARES EACHNOSTRI SCH (12:36)
--- NOTE | 2025-03-05 12:59 | DVHPN2 ---
Progress Note - Dictate Date Seen: Mar 05, 2025 Medical Necessity Reason Pt with a Central, PICC or Fol: No Subjective Patient was seen and evaluated in follow up. Overnight, the patient had 2 beats of V-tach on the hall monitor. Patient is receiving wound care to his BLEs. Telemetry reviewed. vital signs Vital Sign Date Time Temp Pulse Resp B/P (MAP) Pulse Ox O2 Delivery O2 Flow Rate FiO2 03/05/25 09:58 104 20 95 03/05/25 09:50 Room Air 0.0 03/05/25 09:50 21 03/05/25 09:00 97.9 94/61 (72) 97.9 Total Intake and Output 03/04/25 03/04/25 03/05/25 15:00 23:00 07:00 Intake Total 1490 ml 400 ml Output Total 200 ml Balance 1290 ml 400 ml medications Current Medications Medications Dose Ordered Sig/Fartun Route Start Time Stop Time Status Last Admin Dose Admin Sodium Chloride 10 ml Q8HR IV 03/03/25 06:00 03/05/25 05:08 10 ML Enoxaparin Sodium 40 mg DAILY SC 03/03/25 10:00 Acetaminophen 650 mg Q6HP PRN PO 03/03/25 04:45 Vancomycin HCl 0 ml @ 0 mls/hr PER PHARMACY IV 03/03/25 04:45 Ceftriaxone Sodium 50 ml @ 100 mls/hr DAILY@09 IV 03/03/25 09:00 UNV Diagnostic Test (Pha) 1 strip ACHS 03/03/25 07:00 03/05/25 06:19 1 STRIP Insulin Human Regular ACHS SC 03/03/25 07:00 03/03/25 05:59 3 UNITS Dextrose 50 ml UD PRN IV 03/03/25 04:45 Levalbuterol HCl 1.25 mg Q4HPRN NEB 03/03/25 06:00 03/05/25 09:50 1.25 MG Ipratropium [place] 0.5 mg Q4HPRN PRN NEB 03/03/25 04:45 03/05/25 09:49 0.5 MG Furosemide 40 mg BIDD IV 03/03/25 18:00 03/05/25 05:15 40 MG Vancomycin HCl 250 ml @ 166.667 mls/hr Q12H IV 03/03/25 18:00 03/04/25 15:50 166.667 MLS/HR Mupirocin 1 applic BID EACHNOSTRI 03/05/25 10:00 03/10/25 09:59 Meropenem 50 ml @ 17 mls/hr Q8HR IV 03/05/25 14:00 UNV objective GENERAL: Alert and oriented x 3. No acute distress. EYES: PERRL, EOMI. Anicteric. HENT: Moist mucous membranes. LUNGS: Clear to auscultation bilaterally. CARDIOVASCULAR: Regular rate and rhythm. ABDOMEN: Soft, nontender and nondistended. EXTREMITIES: Lower extremity edema, pedal edema, bilateral feet swelling, bilateral lower extremity tenderness, right foot Charcot deformity, Chronic ulcer of plantar surface of right midfoot. NEUROLOGIC: No focal neurological deficits. SKIN: Warm, dry. laboratory and microbiology Laboratory Tests 03/05/25 06:08 Test 03/05/25 06:08 Range/Units Serum Glucose 119 H 74-106 mg/dL Problem List Acute CHF exacerbation, HFrEF (EF 10%). Advanced heart failure noncompliant to GDMT. Acute hypoxic respiratory failure likely due to above. Bilateral lower extremity cellulitis. Chronic ulcer of plantar surface of right midfoot likely due to complicated by uncontrolled diabetes. Chronic nonhealing ulcer on dorsal surface of left foot. Charcot arthropathy right foot. Type 2 diabetes mellitus with hyperglycemia, uncontrolled. Obesity. History of Polysubstance abuse Assessment/Plan Continued all current supportive medical care. [place] for pain management. DVT prophylactics. Diuretics with Lasix. IV antibiotics as ordered. Additional plan as per the hospital course. Plan discussed with: Patient MIGUEL OLIVIER MD Mar 05, 2025 11:14
[2025-03-05] MEDS: MEROPENEM 1GM IVPB 50 ML IV ONE (15:20)
--- NOTE | 2025-03-05 16:00 | DVHPNRES ---
Progress Note Date Seen: Mar 05, 2025 Resident Creating Document: FRANKLIN PERALES RESIDENT Medical Necessity Reason Pt with a Central, PICC or Fol: No Subjective Review of Systems History on presentation: Patient is a 54-year-old homeless male with past medical history of CHF (EF 10%), COPD, DM, CO and stroke, presented to [facility] ED with complaint of pain and swelling in bilateral lower extremities. Patient is a poor historian. Patient complains of pain in bilateral thighs, relieved with walking. He also reports having nonhealing ulcers on both lower legs for several months. Patient was previously prescribed medications for diabetes and CHF, which he discontinued approximately one year ago due to perceived side effects and lack of benefit. He reports worsening pain and swelling in his both legs, particularly on the right foot. He reports progressive shortness of breath over the past 4 months, with worsening symptoms over the last 4 days. He denies fever, chills, nausea, vomiting. On arrival, patient had tachycardic, tachypnea and hypoxic, using 2 L Oxygen NC. Initial labs show normocytic anemia and serum glucose 158. Chest X-ray shows cardiomegaly with moderate pulmonary vascular congestion. Previous hospitalization: PMHx: CHF (EF 10%), COPD, DM, CO, stroke, HTN PSHx: Hernia Repair Social history: Smoke: >40 years 1 pack a day. Alcohol: Occasionally. Drug: Methamphetamine, heroin, cocaine. Unhoused Home medication: Noncompliant Allergic history: No known allergies ROS: Constitutional: Denies weight loss, fever and chills. HEENT: Denies changes in vision and hearing. Respiratory: Denies shortness of breath and cough Cardiovascular: Denies chest discomfort or palpitations GI: Denies abdominal pain, nausea, vomiting and diarrhea. : Denies dysuria and urinary frequency. Musculoskeletal: Bilateral lower extremity swelling and pain. Skin: Denies rash and pruritus. Neurological: Denies dizziness, headache, vision or hearing problems 03/03/2025: Wound Care on board, patient continued to complain of pain. 03/04/2025: Patient continues to complain of pain, foul-smelling discharge from his foot ulcer. MRI done yesterday shows osteomyelitis of right foot, podiatry consulted. 03/05/2025: Patient was seen at bedside today. Patient's blood culture is negative, wound from left foot is growing Gram-positive rods, Gram-positive cocci in pairs and Gram-negative rods. Wound from right foot is growing Gram- positive cocci in pairs, Gram-negative rods. MRSA positive. Echo shows EF 10- 15% with tricuspid regurgitation. Continue current IV antibiotics, sensitivity report shows pansensitive Proteus mirabilis. Patient refusing insulin & consuming diet outside of recommendation, patient shows understanding of risks and benefits of denying medical management. Daughter on bedside. Objective vital signs Vital Sign Date Time Temp Pulse Resp B/P (MAP) Pulse Ox O2 Delivery O2 Flow Rate FiO2 03/05/25 13:00 99.6 102 17 133/79 (97) 96 99.6 03/05/25 09:50 Room Air 0.0 03/05/25 09:50 21 Total Intake and Output 03/04/25 03/04/25 03/05/25 15:00 23:00 07:00 Intake Total 1490 ml 400 ml Output Total 200 ml Balance 1290 ml 400 ml medications Current Medications Medications Dose Ordered Sig/Fartun Route Start Time Stop Time Status Last Admin Dose Admin Sodium Chloride 10 ml Q8HR IV 03/03/25 06:00 03/05/25 15:21 10 ML Enoxaparin Sodium 40 mg DAILY SC 03/03/25 10:00 03/05/25 11:15 40 MG Acetaminophen 650 mg Q6HP PRN PO 03/03/25 04:45 Vancomycin HCl 0 ml @ 0 mls/hr PER PHARMACY IV 03/03/25 04:45 Ceftriaxone Sodium 50 ml @ 100 mls/hr DAILY@09 IV 03/03/25 09:00 UNV Diagnostic Test (Pha) 1 strip ACHS 03/03/25 07:00 03/05/25 12:35 1 STRIP Insulin Human Regular ACHS SC 03/03/25 07:00 03/03/25 05:59 3 UNITS Dextrose 50 ml UD PRN IV 03/03/25 04:45 Ipratropium [place] 0.5 mg Q4HPRN PRN NEB 03/03/25 04:45 03/05/25 09:49 0.5 MG Furosemide 40 mg BIDD IV 03/03/25 18:00 03/05/25 05:15 40 MG Mupirocin 1 applic BID EACHNOSTRI 03/05/25 10:00 03/10/25 09:59 03/05/25 12:36 1 APPLIC Meropenem 50 ml @ 17 mls/hr Q8HR IV 03/05/25 22:00 Vancomycin HCl 250 ml @ 166.667 mls/hr Q8H IV 03/05/25 19:00 Ipratropium [place] 0.5 mg Q4HR NEB 03/05/25 14:00 Levalbuterol HCl 1.25 mg Q4HR NEB 03/05/25 13:45 Examination General: Patient alert and oriented in person, place and time. HEENT: Normocephalic, atraumatic, moist mucous membranes Respiratory/pulmonary: Crackles heard bilaterally. Cardiovascular: Distant heart sounds Abdomen: Tender Umbilical hernia with thickening of skin around the umbilicus. Extremities: Previous incision Scar on left thigh. Dorsal ulcer on left foot, draining yellow discharge. Right foot plantar ulcer, with necrotic base, draining foul-smelling discharge. Right foot swollen, erythematous, Charcot deformity present. Grade 3 pitting edema in bilateral lower extremities and hands. Skin: No rashes or pruritus, there is no sacral edema present at this time. Neurological: Intact cranial nerves with no focal neurologic deficits laboratory and microbiology Laboratory Tests 03/05/25 06:08 Test 03/05/25 06:08 Range/Units Serum Glucose 119 H 74-106 mg/dL Microbiology Date/Time Source Procedure Growth Status 03/04/25 12:20 Foot Right Gram Stain - Final Resulted 03/04/25 12:20 Foot Right Wound Culture - Preliminary Resulted 03/03/25 02:10 Blood Blood Culture - Preliminary NO GROWTH AFTER 48 HOURS OF INCUBATION. Resulted Problem List/Assessment/Plan Problem List/Assessment/Plan Acute CHF exacerbation, HFrEF (EF 10%) Advanced heart failure noncompliant to GDMT Acute hypoxic respiratory failure likely due to above CXR: Cardiomegaly with moderate pulmonary vascular congestion. On 2 L oxygen supplementation Furosemide 40 mg IV b.i.d. with strict I&O Levalbuterol 1.25 mg neb q4h, Ipratropium 0.5 mg neb COVID 19, influenza negative Echo shows EF 10-15% with tricuspid regurgitation. Osteomyelitis right 1st metatarsal, right great toe Bilateral lower extremity cellulitis Chronic ulcer of plantar surface of right midfoot likely due to complicated by uncontrolled diabetes Chronic nonhealing ulcer on dorsal surface of left foot Charcot arthropathy right foot MRI shows diffuse osteomyelitis throughout 1st metatarsal and great toe. Diffuse soft tissue edema in bilateral feet. Diffuse intramuscular edema present in bilateral feet. Wound consult Blood culture, MRSA screen ordered Pain management with acetaminophen 650 mg po q6h and [place] 1 tab po q6h Continue IV vancomycin and cefepime Podiatry consulted Patient's blood culture is negative, wound from left foot is growing Gram- positive rods, Gram-positive cocci in pairs and Gram-negative rods. Wound from right foot is growing Gram-positive cocci in pairs, Gram-negative rods. MRSA positive. Continue current IV antibiotics, sensitivity report shows pansensitive Proteus mirabilis. Type 2 diabetes mellitus with hyperglycemia, uncontrolled Mild sliding scale A1c 8.0 Obesity, BMI 42.4 kg/m2 I have counseled the patient on Carr lifestyle modifications. History of Polysubstance abuse Possible alcohol withdrawal History of drug abuse Start on IV folic acid, thiamine and CIWA protocol Noncompliant Patient A&O x4, denying management plan with insulin Patient counseled at bedside for more than 15 minutes DIET: Cardiac DVT PROPHYLAXIS: Lovenox GI PROPHYLAXIS: Protonix CODE STATUS: Goals of care discussed with patient at bedside for more than 18 minutes. Full code DISPOSITION: Telemetry This medical document was created using an electronic medical record system with [employer] direct computerized dictation system. Although this document has been carefully reviewed, there may still be some phonetic and typographical errors. These areas are purely typographical due to imperfections of the software programs, and do not reflect any compromise in the patient's medical care. Patient's status and plan discussed with the patient. Case discussed with Dr. Figueroa Plan discussed with: Patient, Daughter, Other (Nurses) My Orders My Orders Orders - FRANKLIN PERALES RESIDENT Procedure Category Date Status Time Wound Culture W/ Gs STEVEN 03/04/25 In Process 20:28 Wound Culture W/ Gs STEVEN 03/04/25 In Process 20:28 * Wound Consult CONS 03/05/25 Transmitted Mupirocin 2% Oint PHA 03/05/25 In Process Mrsa Nares (Bactroban 10:00 Dietary NOTICE 03/05/25 Transmitted Recommendations 11:24 Dietary Evaluation Review Comments: Nutrition Recommendation 1) Consider CCHO 90gm + cardiac diet 2) Julio 240ml TID Expected Outcomes/Goals: Wound to improve Lab values to improve Fu 3-5 days Date of Service: Mar 05, 2025 Billing Provider: SHYANNE FIGUEROA MD Common Visit Codes: [id number] INP/OBS CARE(HIGH) FRANKLIN PERALES RESIDENT Mar 05, 2025 16:00 SHYANNE FIGUEROA MD Mar 08, 2025 20:32
[2025-03-05] MEDS ORDERED: FOLIC ACID 1 MG in D5W 5% 50 ML INJ SCH (16:30)
[2025-03-05] MEDS: LORazepam 2MG/ML-1ML VIAL IV ONE (16:30)
[2025-03-05] MEDS: LORazepam 2MG/ML-1ML VIAL IV SCH (16:30)
[2025-03-05] MEDS: FOLIC ACID 1 MG in D5W 5% 50 ML INJ SCH (16:49)
[2025-03-05] MEDS: THIAMINE 100mg/ml INJ (200mg/2ml VIAL) IV ONE (18:57)
[2025-03-05] MEDS: VANCOMYCIN 1.5GM/250ML 250 ML IV SCH (19:00)
[2025-03-05 20:17] LABS: Urine Protein, UAD TRACE (Negative)
[2025-03-05 20:24] LABS: Amphetamine Screen, Urine Pos (NEGATIVE); Barbiturate Scree,Urine Neg (NEGATIVE); Benzodiazephine Screen, Urine Neg (NEGATIVE); Cannabinoid Screen, Urine Neg (NEGATIVE); Cocaine Screen, Urine Neg (NEGATIVE); Opiate Scree,Urine Neg (NEGATIVE); Phencyclidine Screen, Urine Neg (NEGATIVE)
[2025-03-05] MEDS: IPRATROPIUM BROM 0.5 MG/2.5ML INH SOL NEB SCH (20:46)
[2025-03-05] MEDS: LEVALBUTEROL HCL 1.25 MG/3 ML NEB NEB SCH (20:46)
[2025-03-05] MEDS: MEROPENEM 1GM IVPB 50 ML IV SCH (21:45)
[2025-03-06] VITALS (8 sets, daily range): BP systolic 112–144; BP diastolic 76–95; PULSE 88–104; RESP 16–21; TEMP 98.3–99.3; O2SAT 94–99
[2025-03-06] MEDS: THIAMINE 100mg/ml INJ (200mg/2ml VIAL) IV SCH (09:51)
[2025-03-06 10:18] LABS: Hematocrit 36.4 % (41.0-53.0); Hemoglobin 11.3 g/dL (13.5-17.5); Mean Corpuscular Hemoglobin 26.5 pg (28.0-32.0); Mean Corpuscular Volume 85.5 fL (80.0-100.0); Nucleated Red Blood Cells % 0.2 %
[2025-03-06 10:42] LABS: Alanine Aminotransferase 18 U/L (7-40); Albumin 3.3 g/dL (3.2-4.8); Alkaline Phosphatase 101 U/L (46-116); Anion Gap 8 (5-15); BUN/Creatinine Ratio 9.2 (10.0-20.0); Carbon Dioxide 28 mmol/L (20-31); Chloride 102 mmol/L (98-107); Potassium 4.0 mmol/L (3.5-5.1); Sodium 138 mmol/L (136-145); Total Protein 7.4 g/dL (5.7-8.2)
[2025-03-06 10:43] LABS: Bilirubin, Total 0.5 mg/dL (0.2-1.0)
[2025-03-06 10:44] LABS: Blood Urea Nitrogen 9 mg/dL (9-23); Calcium 8.0 mg/dL (8.7-10.4); Glucose 213 mg/dL (74-106)
--- NOTE | 2025-03-06 14:07 | DVHPNRES ---
Progress Note Date Seen: Mar 06, 2025 Resident Creating Document: FRANKLIN PERALES RESIDENT Medical Necessity Reason Pt with a Central, PICC or Fol: No Subjective Review of Systems History on presentation: Patient is a 54-year-old homeless male with past medical history of CHF (EF 10%), COPD, DM, SC and stroke, presented to [facility] ED with complaint of pain and swelling in bilateral lower extremities. Patient is a poor historian. Patient complains of pain in bilateral thighs, relieved with walking. He also reports having nonhealing ulcers on both lower legs for several months. Patient was previously prescribed medications for diabetes and CHF, which he discontinued approximately one year ago due to perceived side effects and lack of benefit. He reports worsening pain and swelling in his both legs, particularly on the right foot. He reports progressive shortness of breath over the past 4 months, with worsening symptoms over the last 4 days. He denies fever, chills, nausea, vomiting. On arrival, patient had tachycardic, tachypnea and hypoxic, using 2 L Oxygen NC. Initial labs show normocytic anemia and serum glucose 158. Chest X-ray shows cardiomegaly with moderate pulmonary vascular congestion. Previous hospitalization: PMHx: CHF (EF 10%), COPD, DM, SC, stroke, HTN PSHx: Hernia Repair Social history: Smoke: >40 years 1 pack a day. Alcohol: Occasionally. Drug: Methamphetamine, heroin, cocaine. Unhoused Home medication: Noncompliant Allergic history: No known allergies ROS: Constitutional: Denies weight loss, fever and chills. HEENT: Denies changes in vision and hearing. Respiratory: Denies shortness of breath and cough Cardiovascular: Denies chest discomfort or palpitations GI: Denies abdominal pain, nausea, vomiting and diarrhea. : Denies dysuria and urinary frequency. Musculoskeletal: Bilateral lower extremity swelling and pain. Skin: Denies rash and pruritus. Neurological: Denies dizziness, headache, vision or hearing problems 03/03/2025: Wound Care on board, patient continued to complain of pain. 03/04/2025: Patient continues to complain of pain, foul-smelling discharge from his foot ulcer. MRI done yesterday shows osteomyelitis of right foot, podiatry consulted. 03/05/2025: Patient's blood culture is negative, wound from left foot is growing Gram-positive rods, Gram-positive cocci in pairs and Gram-negative rods. Wound from right foot is growing Gram-positive cocci in pairs, Gram-negative rods. MRSA positive. Echo shows EF 10-15% with tricuspid regurgitation. Continue current IV antibiotics, sensitivity report shows pansensitive Proteus mirabilis. Patient refusing insulin & consuming diet outside of recommendation, patient shows understanding of risks and benefits of denying medical management. Daughter on bedside. 03/06/2025: Patient was seen at bedside today. Patient remains noncompliant, refusing medical management selectively and continues to leave AMA for brief period of time. Patient also denied to interview with Podiatry yesterday. Podiatry recommended IV antibiotics, no surgery indicated at this time. We will consult ID. Objective vital signs Vital Sign Date Time Temp Pulse Resp B/P (MAP) Pulse Ox O2 Delivery O2 Flow Rate FiO2 03/06/25 10:00 94 Nasal Cannula 2.0 03/06/25 10:00 98.4 88 18 112/76 (88) 98.4 03/06/25 10:00 28 Total Intake and Output 03/05/25 03/05/25 03/06/25 15:00 23:00 07:00 Intake Total 775 ml Output Total 325 ml 1260 ml Balance -325 ml -485 ml medications Current Medications Medications Dose Ordered Sig/Fartun Route Start Time Stop Time Status Last Admin Dose Admin Sodium Chloride 10 ml Q8HR IV 03/03/25 06:00 03/05/25 15:21 10 ML Enoxaparin Sodium 40 mg DAILY SC 03/03/25 10:00 03/06/25 09:49 40 MG Acetaminophen 650 mg Q6HP PRN PO 03/03/25 04:45 Vancomycin HCl 0 ml @ 0 mls/hr PER PHARMACY IV 03/03/25 04:45 Ceftriaxone Sodium 50 ml @ 100 mls/hr DAILY@09 IV 03/03/25 09:00 UNV Diagnostic Test (Pha) 1 strip ACHS 03/03/25 07:00 03/06/25 11:30 1 STRIP Insulin Human Regular ACHS SC 03/03/25 07:00 03/03/25 05:59 3 UNITS Dextrose 50 ml UD PRN IV 03/03/25 04:45 Ipratropium [place] 0.5 mg Q4HPRN PRN NEB 03/03/25 04:45 03/05/25 09:49 0.5 MG Furosemide 40 mg BIDD IV 03/03/25 18:00 03/05/25 18:58 40 MG Mupirocin 1 applic BID EACHNOSTRI 03/05/25 10:00 03/10/25 09:59 03/06/25 09:49 1 APPLIC Meropenem 50 ml @ 17 mls/hr Q8HR IV 03/05/25 22:00 Vancomycin HCl 250 ml @ 166.667 mls/hr Q8H IV 03/05/25 19:00 Ipratropium [place] 0.5 mg Q4HR NEB 03/05/25 14:00 03/05/25 21:01 0.5 MG Levalbuterol HCl 1.25 mg Q4HR NEB 03/05/25 13:45 03/05/25 21:01 1.25 MG Thiamine HCl 100 mg DAILY IV 03/06/25 10:00 Lorazepam 1 mg Q4H IV 03/05/25 16:30 Folic Acid 1 mg/ Dextrose 50.2 ml @ 200 mls/hr DAILY INJ 03/05/25 16:49 Examination General: Patient alert and oriented in person, place and time. HEENT: Normocephalic, atraumatic, moist mucous membranes Respiratory/pulmonary: Breath sounds clear Cardiovascular: Distant heart sounds Abdomen: Tender Umbilical hernia with thickening of skin around the umbilicus. Extremities: Previous incision Scar on left thigh. Bilateral wounds in dressing. Grade 3 pitting edema in bilateral lower extremities and hands. Skin: No rashes or pruritus, there is no sacral edema present at this time. Neurological: Intact cranial nerves with no focal neurologic deficits laboratory and microbiology Laboratory Tests 03/06/25 10:03 Test 03/06/25 10:03 Range/Units Serum Glucose 213 H 74-106 mg/dL Microbiology Date/Time Source Procedure Growth Status 03/04/25 12:20 Foot Right Gram Stain - Final Resulted 03/04/25 12:20 Foot Right Wound Culture - Preliminary Resulted 03/03/25 02:10 Blood Blood Culture - Preliminary NO GROWTH AFTER 72 HOURS OF INCUBATION. Resulted Problem List/Assessment/Plan Problem List/Assessment/Plan Acute CHF exacerbation, HFrEF (EF 10%) Advanced heart failure noncompliant to GDMT Acute hypoxic respiratory failure likely due to above CXR: Cardiomegaly with moderate pulmonary vascular congestion. On 2 L oxygen supplementation Furosemide 40 mg IV b.i.d. with strict I&O Levalbuterol 1.25 mg neb q4h, Ipratropium 0.5 mg neb COVID 19, influenza negative Echo shows EF 10-15% with tricuspid regurgitation. Osteomyelitis right 1st metatarsal, right great toe Bilateral lower extremity cellulitis Chronic ulcer of plantar surface of right midfoot likely due to complicated by uncontrolled diabetes Chronic nonhealing ulcer on dorsal surface of left foot Charcot arthropathy right foot MRI shows diffuse osteomyelitis throughout 1st metatarsal and great toe. Diffuse soft tissue edema in bilateral feet. Diffuse intramuscular edema present in bilateral feet. Wound consult Blood culture, MRSA screen ordered Pain management with acetaminophen 650 mg po q6h and [place] 1 tab po q6h Continue IV vancomycin and cefepime Podiatry recommended IV antibiotics, no procedure recommended at this time. Patient's blood culture is negative, wound from left foot is growing Gram- positive rods, Gram-positive cocci in pairs and Gram-negative rods. Wound from right foot is growing Gram-positive cocci in pairs, Gram-negative rods. MRSA positive. Continue current IV antibiotics, sensitivity report shows pansensitive Proteus mirabilis. ID consulted Type 2 diabetes mellitus with hyperglycemia, uncontrolled Mild sliding scale A1c 8.0 Obesity, BMI 42.4 kg/m2 I have counseled the patient on Carr lifestyle modifications. History of Polysubstance abuse Possible alcohol withdrawal History of drug abuse UDS positive for methamphetamine use Continue IV folic acid, thiamine and CIWA protocol Patient counseled against drug use for more than 15 minutes on bedside Noncompliant Patient A&O x4, denying management plan with insulin DIET: Cardiac DVT PROPHYLAXIS: Lovenox GI PROPHYLAXIS: Protonix CODE STATUS: Goals of care discussed with patient at bedside for more than 28 minutes. Full code DISPOSITION: Telemetry This medical document was created using an electronic medical record system with [employer] direct computerized dictation system. Although this document has been carefully reviewed, there may still be some phonetic and typographical errors. These areas are purely typographical due to imperfections of the software programs, and do not reflect any compromise in the patient's medical care. Patient's status and plan discussed with the patient. Case discussed with Dr. Figueroa Plan discussed with: Patient, Other (Nurses) My Orders My Orders Orders - FRANKLIN PERALES RESIDENT Procedure Category Date Status Time Schedule For Dc LONG 03/06/25 In Process Clinic F/U 11:27 Troponin-I Hs LAB 03/06/25 In Process 12:56 Electrocardigram EKG 03/06/25 Logged 12:56 Magnesium LAB 03/06/25 In Process 12:56 Troponin-I Hs LAB 03/06/25 Logged 13:56 Troponin-I Hs LAB 03/06/25 Logged 15:56 Dietary Evaluation Review Comments: Nutrition Recommendation 1) Consider CCHO 90gm + cardiac diet 2) Julio 240ml TID Expected Outcomes/Goals: Wound to improve Lab values to improve Fu 3-5 days Date of Service: Mar 06, 2025 Billing Provider: SHYANNE FIGUEROA MD Common Visit Codes: [id number] INP/OBS CARE(HIGH) FRANKLIN PERALES RESIDENT Mar 06, 2025 14:07 SHYANNE FIGUEROA MD Mar 08, 2025 20:33
[2025-03-06] MEDS: VANCOMYCIN 1.5GM/250ML 250 ML IV SCH (16:05)
--- NOTE | 2025-03-06 22:16 | DVHINCON2 ---
Family History: Cardiovascular disease G8 MOTHER Allergies: Coded Allergies: NO KNOWN ALLERGIES (Unverified , 05/17/23) Current Medications Current Medications Medications (Trade) Dose Ordered Sig/Fartun Route PRN Reason Start Time Stop Time Status Last Admin Thiamine HCl 100 mg DAILY IV 03/06/25 10:00 03/06/25 15:40 Vancomycin HCl 250 ml @ 166.667 mls/hr Q8H IV 03/06/25 16:00 03/06/25 16:05 Vital Signs Vital Signs Date Time Temp Pulse Resp B/P (MAP) Pulse Ox O2 Delivery O2 Flow Rate FiO2 03/06/25 21:46 95 Room Air* 0 21 03/06/25 21:00 98.3 100 19 128/95 (106) 98.3 Labs/Diagnostic Data Labs Test 03/06/25 18:40 03/06/25 16:06 03/06/25 10:03 03/06/25 00:20 Range/Units POC Glucose 161 H 70-106 mg/dl Troponin I High Sensitivity 40 </=54 ng/L White Blood Count 7.4 # 4.4-10.8 10^3/uL Red Blood Count 4.26 L 4.5-5.90 10^6/uL Hemoglobin 11.3 L 13.5-17.5 g/dL Hematocrit 36.4 L 41.0-53.0 % Mean Corpuscular Volume 85.5 80.0-100.0 fL Mean Corpuscular Hemoglobin 26.5 L 28.0-32.0 pg Mean Corpuscular Hemoglobin Concent 31.0 L 32.0-36.0 g/dL Red Cell Distribution Width 17.4 H 11.8-14.3 % Platelet Count 362 140-450 10^3/uL Mean Platelet Volume 7.5 6.9-10.8 fL Neutrophils (%) (Auto) 77.6 37.0-80.0 % Lymphocytes (%) (Auto) 10.7 10.0-50.0 % Monocytes (%) (Auto) 8.4 0.0-12.0 % Eosinophils (%) (Auto) 2.7 0.0-7.0 % Basophils (%) (Auto) 0.6 0.0-2.0 % Neutrophils # (Auto) 5.7 1.6-8.6 10 ^3/uL Lymphocytes # (Auto) 0.8 0.4-5.4 10 ^3/uL Monocytes # (Auto) 0.6 0-1.3 10 ^3/uL Eosinophils # (Auto) 0.2 0-0.8 10 ^3/uL Basophils # (Auto) 0 0-0.2 10 ^3/uL Nucleated Red Blood Cells 0.2 % Sodium Level 138 136-145 mmol/L Potassium Level 4.0 3.5-5.1 mmol/L Chloride Level 102 98-107 mmol/L Carbon Dioxide Level 28 20-31 mmol/L Anion Gap 8 5-15 Blood Urea Nitrogen 9 9-23 mg/dL Creatinine 0.98 0.700-1.30 mg/dL Glomerular Filtration Rate Calc 91 >90 mL/min BUN/Creatinine Ratio 9.2 L 10.0-20.0 Serum Glucose 213 H 74-106 mg/dL Calcium Level 8.0 L 8.7-10.4 mg/dL Magnesium Level 1.6 1.6-2.6 mg/dL Total Bilirubin 0.5 0.2-1.0 mg/dL Aspartate Amino Transferase (AST) 22 13-40 U/L Alanine Aminotransferase (ALT) 18 7-40 U/L Alkaline Phosphatase 101 46-116 U/L Total Protein 7.4 5.7-8.2 g/dL Albumin 3.3 3.2-4.8 g/dL Vancomycin Level Trough 5.9 5-10 ug/mL Plasma/Serum Blood Alcohol < 3.0 <10 mg/dL Test 03/05/25 19:30 03/05/25 10:12 03/04/25 11:17 03/03/25 19:20 Range/Units Urine Color Yellow Yellow Urine Clarity Clear Clear Urine pH 5.5 5.0-9.0 Urine Specific [place] 1.018 1.001-1.035 Urine Protein Trace H Negative Urine Ketones Negative Negative Urine Blood Negative Negative /uL Urine Nitrite Negative Negative Urine Bilirubin Negative Negative Urine Urobilinogen Normal Negative mg/dL Urine Leukocyte Esterase Negative Negative /uL Urine RBC <1 0 - 3 /hpf Urine Microscopic WBC 1 0-3 /HPF Urine Squamous Epithelial Cells None seen <5 /hpf Urine Bacteria Few H None Seen /hpf Urine Hyaline Casts Few 0 - 2 /lpf Urine Mucus Few None Seen Urine Glucose Normal Normal mg/dL Urine Opiates Screen Neg NEGATIVE Urine Fentanyl Screen Neg NEGATIVE Urine Barbiturates Screen Neg NEGATIVE Urine Phencyclidine Screen Neg NEGATIVE Urine Amphetamines Screen Pos NEGATIVE Urine Benzodiazepines Screen Neg NEGATIVE Urine Cocaine Screen Neg NEGATIVE Urine Cannabinoids Screen Neg NEGATIVE Blood Gas Specimen Type Arterial Blood Gas Sample Site Right radial Blood Gas Patient Temperature 37.0 Arterial Blood Date Drawn [id number] Arterial Blood pH 7.413 7.350-7.450 Arterial Blood Partial Pressure CO2 42.9 35.0-48.0 mmHg Arterial Blood Partial Pressure O2 45.2 *L 83.0-108.0 mmHg Arterial Blood HCO3 26.8 21.0-28.0 mmol/L Arterial Blood Oxygen Saturation 79.7 *L 94.0-98.0 % Arterial Blood Base Excess 1.9 -2.0-3.0 mmol/L Arterial Blood Oxyhemoglobin 78.2 L 94.0-98.0 % Arterial Blood Carboxyhemoglobin 1.4 0.5-1.5 % Arterial Blood Methemoglobin 0.5 0.0-1.5 % Erich Test Yes Blood Gas Total Hemoglobin 12.10 L 13.5-17.5 g/dL Blood Gas Modality Room air FiO2 % 21.0 Blood Gas Critical Value Read Back Rt b sweetie Blood Gas Notified Whom Md. channing dumont Blood Gas Notified Time [id number] Blood Gas Notified By Lactic Acid Level 1.2 0.4-2.0 mmol/L Direct Bilirubin 0.4 H <0.3 mg/dL Thyroid Stimulating Hormone (TSH) 3.76 0.55-4.78 uIU/mL Test 03/03/25 09:10 03/03/25 05:51 03/03/25 02:10 Range/Units Influenza Type A Antigen Negative Negative Influenza Type B Antigen Negative Negative SARS-CoV-2 Antigen (Rapid) Negative NEGATIVE Hemoglobin A1c 8.0 H <5.7 % A1C B-Type Natriuretic Peptide 981.95 0-100 pg/mL Microbiology Date/Time Source Procedure Growth Status 03/04/25 12:20 Foot Right Gram Stain - Final Resulted 03/04/25 12:20 Foot Right Wound Culture - Preliminary Resulted 03/03/25 02:10 Blood Blood Culture - Preliminary NO GROWTH AFTER 72 HOURS OF INCUBATION. Resulted SUMIT BLUM MD Mar 06, 2025 22:16
--- NOTE | 2025-03-06 23:44 | DVHPN2 ---
Progress Note - Dictate Date Seen: Mar 06, 2025 Medical Necessity Reason Pt with a Central, PICC or Fol: No Subjective Patient was seen and evaluated in follow up. Per RN, the patient is refusing multiple medications. Patient complains of BLE pain. GLUC 202, CA 8. Telemetry reviewed. vital signs Vital Sign Date Time Temp Pulse Resp B/P (MAP) Pulse Ox O2 Delivery O2 Flow Rate FiO2 03/06/25 10:00 98.4 88 18 112/76 (88) 97 98.4 03/06/25 02:34 Room Air* 0 21 Total Intake and Output 03/05/25 03/05/25 03/06/25 15:00 23:00 07:00 Intake Total 775 ml Output Total 325 ml 1260 ml Balance -325 ml -485 ml medications Current Medications Medications Dose Ordered Sig/Fartun Route Start Time Stop Time Status Last Admin Dose Admin Sodium Chloride 10 ml Q8HR IV 03/03/25 06:00 03/05/25 15:21 10 ML Enoxaparin Sodium 40 mg DAILY SC 03/03/25 10:00 03/06/25 09:49 40 MG Acetaminophen 650 mg Q6HP PRN PO 03/03/25 04:45 Vancomycin HCl 0 ml @ 0 mls/hr PER PHARMACY IV 03/03/25 04:45 Ceftriaxone Sodium 50 ml @ 100 mls/hr DAILY@09 IV 03/03/25 09:00 UNV Diagnostic Test (Pha) 1 strip ACHS 03/03/25 07:00 03/06/25 11:30 1 STRIP Insulin Human Regular ACHS SC 03/03/25 07:00 03/03/25 05:59 3 UNITS Dextrose 50 ml UD PRN IV 03/03/25 04:45 Ipratropium [place] 0.5 mg Q4HPRN PRN NEB 03/03/25 04:45 03/05/25 09:49 0.5 MG Furosemide 40 mg BIDD IV 03/03/25 18:00 03/05/25 18:58 40 MG Mupirocin 1 applic BID EACHNOSTRI 03/05/25 10:00 03/10/25 09:59 03/06/25 09:49 1 APPLIC Meropenem 50 ml @ 17 mls/hr Q8HR IV 03/05/25 22:00 Vancomycin HCl 250 ml @ 166.667 mls/hr Q8H IV 03/05/25 19:00 Ipratropium [place] 0.5 mg Q4HR NEB 03/05/25 14:00 03/05/25 21:01 0.5 MG Levalbuterol HCl 1.25 mg Q4HR NEB 03/05/25 13:45 03/05/25 21:01 1.25 MG Thiamine HCl 100 mg DAILY IV 03/06/25 10:00 Lorazepam 1 mg Q4H IV 03/05/25 16:30 Folic Acid 1 mg/ Dextrose 50.2 ml @ 200 mls/hr DAILY INJ 03/05/25 16:49 objective GENERAL: Alert and oriented x 3. No acute distress. EYES: PERRL, EOMI. Anicteric. HENT: Moist mucous membranes. LUNGS: Clear to auscultation bilaterally. CARDIOVASCULAR: Regular rate and rhythm. ABDOMEN: Soft, nontender and nondistended. EXTREMITIES: Lower extremity edema, pedal edema, bilateral feet swelling, bilateral lower extremity tenderness, right foot Charcot deformity, Chronic ulcer of plantar surface of right midfoot. NEUROLOGIC: No focal neurological deficits. SKIN: Warm, dry. laboratory and microbiology Laboratory Tests 03/06/25 10:03 Test 03/06/25 10:03 Range/Units Serum Glucose 213 H 74-106 mg/dL Problem List Acute CHF exacerbation, HFrEF (EF 10%). Advanced heart failure noncompliant to GDMT. Acute hypoxic respiratory failure likely due to above. Bilateral lower extremity cellulitis. Chronic ulcer of plantar surface of right midfoot likely due to complicated by uncontrolled diabetes. Chronic nonhealing ulcer on dorsal surface of left foot. Charcot arthropathy right foot. Type 2 diabetes mellitus with hyperglycemia, uncontrolled. Obesity. History of Polysubstance abuse Assessment/Plan Continued all current supportive medical care. Tylenol for pain management. DVT prophylactics. IV antibiotics as ordered. Additional plan as per the hospital course. Dietary Evaluation Review Comments: Nutrition Recommendation 1) Consider CCHO 90gm + cardiac diet 2) Julio 240ml TID Expected Outcomes/Goals: Wound to improve Lab values to improve Fu 3-5 days Plan discussed with: Patient MIGUEL OLIVIER MD Mar 06, 2025 12:28
[2025-03-07] VITALS (18 sets, daily range): BP systolic 137–153; BP diastolic 90–108; PULSE 86–114; RESP 18–22; TEMP 97.9–98.9; O2SAT 93–99
[2025-03-07 10:25] LABS: Nucleated Red Blood Cells % 0.0 %
[2025-03-07 10:27] LABS: Hematocrit 35.6 % (41.0-53.0); Hemoglobin 11.4 g/dL (13.5-17.5); Mean Corpuscular Hemoglobin 26.9 pg (28.0-32.0); Mean Corpuscular Volume 84.1 fL (80.0-100.0)
[2025-03-07 10:32] LABS: Potassium 4.6 mmol/L (3.5-5.1); Sodium 137 mmol/L (136-145)
[2025-03-07 10:33] LABS: Anion Gap 5 (5-15)
[2025-03-07 10:37] LABS: Calcium 8.1 mg/dL (8.7-10.4); Carbon Dioxide 34 mmol/L (20-31); Chloride 98 mmol/L (98-107)
[2025-03-07 10:39] LABS: BUN/Creatinine Ratio 10.0 (10.0-20.0); Blood Urea Nitrogen 10 mg/dL (9-23); INR 1.29 (0.9-1.15); Partial Thromboplastin Time 28.5 SEC (24.5-34.5); Prothrombin Time 13.3 sec (9.3-11.8)
[2025-03-07 10:41] LABS: Glucose 263 mg/dL (74-106)
--- NOTE | 2025-03-07 12:48 | DVHPNRES ---
Progress Note Date Seen: Mar 07, 2025 Resident Creating Document: NOY KAHN RESIDENT Medical Necessity Reason Pt with a Central, PICC or Fol: No Subjective Review of Systems Patient seen and examined at bedside Notes some confusion, AO times 3-4 Continues to remain noncompliant to blood draws, medication. Counseled patient extensively Wanting to leave AMA to smoke. We will hold off on PICC line placement owing to patient being on housed? And active methamphetamine abuser. Objective vital signs Vital Sign Date Time Temp Pulse Resp B/P (MAP) Pulse Ox O2 Delivery O2 Flow Rate FiO2 03/07/25 10:00 99 Nasal Cannula 2.0 03/07/25 10:00 28 03/07/25 09:42 104 22 03/07/25 09:00 98.4 153/96 (115) 98.4 Total Intake and Output 03/06/25 03/06/25 03/07/25 15:00 23:00 07:00 Intake Total 600 ml 1055 ml Output Total 2050 ml Balance 600 ml -995 ml medications Current Medications Medications Dose Ordered Sig/Fartun Route Start Time Stop Time Status Last Admin Dose Admin Sodium Chloride 10 ml Q8HR IV 03/03/25 06:00 03/07/25 05:44 10 ML Enoxaparin Sodium 40 mg DAILY SC 03/03/25 10:00 03/06/25 09:49 40 MG Acetaminophen 650 mg Q6HP PRN PO 03/03/25 04:45 Vancomycin HCl 0 ml @ 0 mls/hr PER PHARMACY IV 03/03/25 04:45 Ceftriaxone Sodium 50 ml @ 100 mls/hr DAILY@09 IV 03/03/25 09:00 UNV Diagnostic Test (Pha) 1 strip ACHS 03/03/25 07:00 03/06/25 21:26 1 STRIP Insulin Human Regular ACHS SC 03/03/25 07:00 03/03/25 05:59 3 UNITS Dextrose 50 ml UD PRN IV 03/03/25 04:45 Ipratropium [place] 0.5 mg Q4HPRN PRN NEB 03/03/25 04:45 03/05/25 09:49 0.5 MG Furosemide 40 mg BIDD IV 03/03/25 18:00 03/07/25 06:57 40 MG Mupirocin 1 applic BID EACHNOSTRI 03/05/25 10:00 03/10/25 09:59 03/07/25 09:13 1 APPLIC Meropenem 50 ml @ 17 mls/hr Q8HR IV 03/05/25 22:00 03/07/25 05:34 17 MLS/HR Ipratropium [place] 0.5 mg Q4HR NEB 03/05/25 14:00 03/07/25 09:42 0.5 MG Levalbuterol HCl 1.25 mg Q4HR NEB 03/05/25 13:45 03/07/25 09:42 1.25 MG Thiamine HCl 100 mg DAILY IV 03/06/25 10:00 03/07/25 09:11 100 MG Lorazepam 1 mg Q4H IV 03/05/25 16:30 Folic Acid 1 mg/ Dextrose 50.2 ml @ 200 mls/hr DAILY INJ 03/05/25 16:49 03/06/25 15:08 200 MLS/HR Vancomycin HCl 250 ml @ 166.667 mls/hr Q8H IV 03/06/25 16:00 03/07/25 09:12 166.667 MLS/HR Examination General Appearance: Uncooperative. Obese. Head Exam: Normal inspection, atraumatic. Moist mucous membranes. Pulmonary/Respiratory: Equal bilateral air entry, crackles heard. Cardiovascular/Chest: Regular rate and rhythm. No murmurs. Peripheral Pulses: 2+ Pedal (R). 2+ Pedal (L) Abdominal Exam: Normal bowel sounds. Soft. normal abdomen, no visible veins, Nontender. No hepatospenomegaly. No masses perineum umbilical hernia noted. Ankle Exam: 3+ pitting edema. Right foot diabetic foot ulcer x2 on the plantar surface, sinuses draining serosanguineous exudate. Left foot dorsal surface to open full-thickness ulcers, 1 proximal aspect of left 2nd phalange and 2nd between the 2nd and 3rd metatarsals, with serosanguineous discharge foul- smelling. noted on the dorsum of the foot. Left foot opened ulcer noted. Neuro/Mental Status: A&O x 3-4. laboratory and microbiology Laboratory Tests 03/07/25 10:08 Test 03/07/25 10:08 Range/Units Serum Glucose 263 H 74-106 mg/dL Microbiology Date/Time Source Procedure Growth Status 03/04/25 12:20 Foot Right Gram Stain - Final Resulted 03/04/25 12:20 Foot Right Wound Culture - Preliminary Resulted 03/03/25 02:10 Blood Blood Culture - Preliminary NO GROWTH AFTER 72 HOURS OF INCUBATION. Resulted Labs and/or images reviewed: Labs reviewed by me, Image(s) reviewed by me Problem List/Assessment/Plan Problem List/Assessment/Plan Acute CHF exacerbation, HFrEF (EF 10%) Advanced heart failure noncompliant to GDMT Acute hypoxic respiratory failure likely due to above Tricuspid regurgitation CXR: Cardiomegaly with moderate pulmonary vascular congestion. On 2 L oxygen supplementation Furosemide 40 mg IV b.i.d. with strict I&O Levalbuterol 1.25 mg neb q4h, Ipratropium 0.5 mg neb COVID 19, influenza negative Osteomyelitis right 1st metatarsal, right great toe Bilateral lower extremity cellulitis Chronic ulcer of plantar surface of right midfoot likely due to complicated by uncontrolled diabetes Chronic nonhealing ulcer on dorsal surface of left foot Charcot arthropathy right foot MRI shows diffuse osteomyelitis throughout 1st metatarsal and great toe. Diffuse soft tissue edema in bilateral feet. Diffuse intramuscular edema present in bilateral feet. Wound consult Blood culture, MRSA screen ordered Pain management with acetaminophen 650 mg po q6h and [place] 1 tab po q6h Continue IV vancomycin and cefepime Podiatry recommended IV antibiotics, no procedure recommended at this time. Patient's blood culture is negative, wound from left foot is growing Gram- positive rods, Gram-positive cocci in pairs and Gram-negative rods. Wound from right foot is growing Gram-positive cocci in pairs, Gram-negative rods. MRSA positive. Continue current IV antibiotics, sensitivity report shows pansensitive Proteus mirabilis. ID consulted Type 2 diabetes mellitus with hyperglycemia, uncontrolled Mild sliding scale A1c 8.0 Obesity, BMI 42.4 kg/m2 I have counseled the patient on Carr lifestyle modifications. History of Polysubstance abuse Possible alcohol withdrawal History of drug abuse UDS positive for methamphetamine use Continue IV folic acid, thiamine and CIWA protocol Patient counseled against drug use for more than 15 minutes on bedside Noncompliant Patient A&O x3-4, denying management plan with insulin DIET: Cardiac DVT PROPHYLAXIS: Lovenox GI PROPHYLAXIS: Protonix CODE STATUS: Goals of care discussed with patient at bedside for more than 28 minutes. Full code DISPOSITION: Telemetry This medical document was created using an electronic medical record system with M*M flurency direct computerized dictation system. Although this document has been carefully reviewed, there may still be some phonetic and typographical errors. These areas are purely typographical due to imperfections of the software programs, and do not reflect any compromise in the patient's medical care. Patient's status and plan discussed with the patient. Case discussed with Dr. Figueroa Plan discussed with: Patient, Other (RN) My Orders My Orders Orders - NOY KAHN Procedure Category Date Status Time Pt Request For Service PT 03/07/25 Logged 11:48 Dietary Evaluation Review Comments: Nutrition Recommendation 1) Consider CCHO 90gm + cardiac diet 2) Julio 240ml TID Expected Outcomes/Goals: Wound to improve Lab values to improve Fu 3-5 days Date of Service: Mar 07, 2025 Billing Provider: SHYANNE FIGUEROA MD Common Visit Codes: [id number] INP/OBS CARE(HIGH) NOY KAHN Mar 07, 2025 12:47 SHYANNE FIGUEROA MD Mar 08, 2025 20:33
[2025-03-07] MEDS ORDERED: MUPIROCIN 2% OINT 15gm or 22gm FOR MRSA NARES EACHNOSTRI SCH (22:00)
[2025-03-07] MEDS: ACETAMINOPHEN 325 MG TAB PO PRN (22:01)
[2025-03-07] MEDS: MUPIROCIN 2% OINT 15gm or 22gm FOR MRSA NARES EACHNOSTRI SCH (22:45)
--- NOTE | 2025-03-07 22:56 | DVHPN2 ---
Progress Note - Dictate Date Seen: Mar 07, 2025 Medical Necessity Reason Pt with a Central, PICC or Fol: No Subjective Patient was seen and evaluated in follow up. Patient continues to be noncompliant with blood draws and medication. CO2 34, GLUC 263, CA 8.1. Telemetry reviewed. vital signs Vital Sign Date Time Temp Pulse Resp B/P (MAP) Pulse Ox O2 Delivery O2 Flow Rate FiO2 03/07/25 13:00 97.9 96 20 137/90 (106) 95 97.9 03/07/25 10:00 Nasal Cannula 2.0 03/07/25 10:00 28 Total Intake and Output 03/06/25 03/06/25 03/07/25 15:00 23:00 07:00 Intake Total 600 ml 1055 ml Output Total 2050 ml Balance 600 ml -995 ml medications Current Medications Medications Dose Ordered Sig/Fartun Route Start Time Stop Time Status Last Admin Dose Admin Sodium Chloride 10 ml Q8HR IV 03/03/25 06:00 03/07/25 05:44 10 ML Enoxaparin Sodium 40 mg DAILY SC 03/03/25 10:00 03/06/25 09:49 40 MG Acetaminophen 650 mg Q6HP PRN PO 03/03/25 04:45 Vancomycin HCl 0 ml @ 0 mls/hr PER PHARMACY IV 03/03/25 04:45 Ceftriaxone Sodium 50 ml @ 100 mls/hr DAILY@09 IV 03/03/25 09:00 UNV Diagnostic Test (Pha) 1 strip ACHS 03/03/25 07:00 03/06/25 21:26 1 STRIP Insulin Human Regular ACHS SC 03/03/25 07:00 03/03/25 05:59 3 UNITS Dextrose 50 ml UD PRN IV 03/03/25 04:45 Ipratropium [place] 0.5 mg Q4HPRN PRN NEB 03/03/25 04:45 03/05/25 09:49 0.5 MG Furosemide 40 mg BIDD IV 03/03/25 18:00 03/07/25 06:57 40 MG Mupirocin 1 applic BID EACHNOSTRI 03/05/25 10:00 03/10/25 09:59 03/07/25 09:13 1 APPLIC Meropenem 50 ml @ 17 mls/hr Q8HR IV 03/05/25 22:00 03/07/25 05:34 17 MLS/HR Ipratropium [place] 0.5 mg Q4HR NEB 03/05/25 14:00 03/07/25 09:42 0.5 MG Levalbuterol HCl 1.25 mg Q4HR NEB 03/05/25 13:45 03/07/25 09:42 1.25 MG Thiamine HCl 100 mg DAILY IV 03/06/25 10:00 03/07/25 09:11 100 MG Lorazepam 1 mg Q4H IV 03/05/25 16:30 Folic Acid 1 mg/ Dextrose 50.2 ml @ 200 mls/hr DAILY INJ 03/05/25 16:49 03/06/25 15:08 200 MLS/HR Vancomycin HCl 250 ml @ 166.667 mls/hr Q8H IV 03/06/25 16:00 03/07/25 09:12 166.667 MLS/HR objective GENERAL: Alert and oriented x 3. No acute distress. EYES: PERRL, EOMI. Anicteric. HENT: Moist mucous membranes. LUNGS: Clear to auscultation bilaterally. CARDIOVASCULAR: Regular rate and rhythm. ABDOMEN: Soft, nontender and nondistended. EXTREMITIES: Lower extremity edema, pedal edema, bilateral feet swelling, bilateral lower extremity tenderness, right foot Charcot deformity, Chronic ulcer of plantar surface of right midfoot. NEUROLOGIC: No focal neurological deficits. SKIN: Warm, dry. laboratory and microbiology Laboratory Tests 03/07/25 10:08 Test 03/07/25 10:08 Range/Units Serum Glucose 263 H 74-106 mg/dL Problem List Acute CHF exacerbation, HFrEF (EF 10%). Advanced heart failure noncompliant to GDMT. Acute hypoxic respiratory failure likely due to above. Bilateral lower extremity cellulitis. Chronic ulcer of plantar surface of right midfoot likely due to complicated by uncontrolled diabetes. Chronic nonhealing ulcer on dorsal surface of left foot. Charcot arthropathy right foot. Type 2 diabetes mellitus with hyperglycemia, uncontrolled. Obesity. History of Polysubstance abuse Assessment/Plan Continued all current supportive medical care. Tylenol for pain management. IV antibiotics as ordered. Nebulized breathing treatments. Diuretics with Lasix. Additional plan as per the hospital course. Dietary Evaluation Review Comments: Nutrition Recommendation 1) Consider CCHO 90gm + cardiac diet 2) Julio 240ml TID Expected Outcomes/Goals: Wound to improve Lab values to improve Fu 3-5 days Plan discussed with: Patient MIGUEL OLIVIER MD Mar 07, 2025 14:08
[2025-03-08] VITALS (18 sets, daily range): BP systolic 120–156; BP diastolic 81–114; PULSE 95–125; RESP 18–22; TEMP 97.9–98.4; O2SAT 92–98
[2025-03-08 15:02] LABS: Hemoglobin 11.7 g/dL (13.5-17.5); Nucleated Red Blood Cells % 0.1 %
[2025-03-08 15:04] LABS: Hematocrit 37.0 % (41.0-53.0); Mean Corpuscular Hemoglobin 26.8 pg (28.0-32.0); Mean Corpuscular Volume 84.4 fL (80.0-100.0)
[2025-03-08 15:39] LABS: Chloride 98 mmol/L (98-107); Potassium 4.6 mmol/L (3.5-5.1); Sodium 136 mmol/L (136-145)
[2025-03-08 15:40] LABS: Anion Gap 7 (5-15); Carbon Dioxide 31 mmol/L (20-31)
[2025-03-08 15:46] LABS: BUN/Creatinine Ratio 12.6 (10.0-20.0); Blood Urea Nitrogen 12 mg/dL (9-23)
[2025-03-08 15:52] LABS: Calcium 8.4 mg/dL (8.7-10.4); Glucose 201 mg/dL (74-106)
--- NOTE | 2025-03-08 16:21 | MEDREC ---
[facility] Intervention Section I [facility] Intervention: Deescalate AB based on CS (RIGHT FOOT WOUND CULTURE FINAL FOR PROTEUS MIRABILIS AND LEFT FOOT WOUND CULTURE FINAL FOR ACINETOBACTER BAUMANNII. PLEASE CONSIDER DE-ESCALATING BASED OFF SUSCEPTIBILITIES IF/WHEN CLINCALLY APPROPRIATE.) ROSELINE HERNANDEZ [facility] RESIDENT Mar 08, 2025 16:21
--- NOTE | 2025-03-08 16:33 | DVHPNRES ---
Progress Note Date Seen: Mar 08, 2025 Resident Creating Document: FRANKLIN PERALES RESIDENT Medical Necessity Reason Pt with a Central, PICC or Fol: No Subjective Review of Systems History on presentation: Patient is a 54-year-old homeless male with past medical history of CHF (EF 10%), COPD, DM, GA and stroke, presented to [facility] ED with complaint of pain and swelling in bilateral lower extremities. Patient is a poor historian. Patient complains of pain in bilateral thighs, relieved with walking. He also reports having nonhealing ulcers on both lower legs for several months. Patient was previously prescribed medications for diabetes and CHF, which he discontinued approximately one year ago due to perceived side effects and lack of benefit. He reports worsening pain and swelling in his both legs, particularly on the right foot. He reports progressive shortness of breath over the past 4 months, with worsening symptoms over the last 4 days. He denies fever, chills, nausea, vomiting. On arrival, patient had tachycardic, tachypnea and hypoxic, using 2 L Oxygen NC. Initial labs show normocytic anemia and serum glucose 158. Chest X-ray shows cardiomegaly with moderate pulmonary vascular congestion. Previous hospitalization: PMHx: CHF (EF 10%), COPD, DM, GA, stroke, HTN PSHx: Hernia Repair Social history: Smoke: >40 years 1 pack a day. Alcohol: Occasionally. Drug: Methamphetamine, heroin, cocaine. Unhoused Home medication: Noncompliant Allergic history: No known allergies ROS: Constitutional: Denies weight loss, fever and chills. HEENT: Denies changes in vision and hearing. Respiratory: Denies shortness of breath and cough Cardiovascular: Denies chest discomfort or palpitations GI: Denies abdominal pain, nausea, vomiting and diarrhea. : Denies dysuria and urinary frequency. Musculoskeletal: Bilateral lower extremity swelling and pain. Skin: Denies rash and pruritus. Neurological: Denies dizziness, headache, vision or hearing problems 03/03/2025: Wound Care on board, patient continued to complain of pain. 03/04/2025: Patient continues to complain of pain, foul-smelling discharge from his foot ulcer. MRI done yesterday shows osteomyelitis of right foot, podiatry consulted. 03/05/2025: Patient's blood culture is negative, wound from left foot is growing Gram-positive rods, Gram-positive cocci in pairs and Gram-negative rods. Wound from right foot is growing Gram-positive cocci in pairs, Gram-negative rods. MRSA positive. Echo shows EF 10-15% with tricuspid regurgitation. Continue current IV antibiotics, sensitivity report shows pansensitive Proteus mirabilis. Patient refusing insulin & consuming diet outside of recommendation, patient shows understanding of risks and benefits of denying medical management. Daughter on bedside. 03/06/2025: Patient remains noncompliant, refusing medical management selectively and continues to leave AMA for brief period of time. Patient also denied to interview with Podiatry yesterday. Podiatry recommended IV antibiotics, no surgery indicated at this time. We will consult ID. 03/08/2025: Patient was seen at bedside today. ID consult pending. Objective vital signs Vital Sign Date Time Temp Pulse Resp B/P (MAP) Pulse Ox O2 Delivery O2 Flow Rate FiO2 03/08/25 12:36 98.1 106 20 120/81 (94) 92 98.1 03/08/25 11:12 Nasal Cannula 2.0 03/08/25 11:12 28 Total Intake and Output 03/07/25 03/07/25 03/08/25 15:00 23:00 07:00 Intake Total 250 ml 50 ml 470 ml Output Total 2075 ml 525 ml 575 ml Balance -1825 ml -475 ml -105 ml medications Current Medications Medications Dose Ordered Sig/Fartun Route Start Time Stop Time Status Last Admin Dose Admin Sodium Chloride 10 ml Q8HR IV 03/03/25 06:00 03/08/25 06:00 10 ML Enoxaparin Sodium 40 mg DAILY SC 03/03/25 10:00 03/06/25 09:49 40 MG Acetaminophen 650 mg Q6HP PRN PO 03/03/25 04:45 03/07/25 22:01 650 MG Vancomycin HCl 0 ml @ 0 mls/hr PER PHARMACY IV 03/03/25 04:45 Ceftriaxone Sodium 50 ml @ 100 mls/hr DAILY@09 IV 03/03/25 09:00 UNV Diagnostic Test (Pha) 1 strip ACHS 03/03/25 07:00 03/07/25 22:00 1 STRIP Insulin Human Regular ACHS SC 03/03/25 07:00 03/03/25 05:59 3 UNITS Dextrose 50 ml UD PRN IV 03/03/25 04:45 Ipratropium [place] 0.5 mg Q4HPRN PRN NEB 03/03/25 04:45 03/05/25 09:49 0.5 MG Furosemide 40 mg BIDD IV 03/03/25 18:00 03/08/25 06:00 40 MG Meropenem 50 ml @ 17 mls/hr Q8HR IV 03/05/25 22:00 03/08/25 13:26 17 MLS/HR Ipratropium [place] 0.5 mg Q4HR NEB 03/05/25 14:00 03/08/25 11:12 0.5 MG Levalbuterol HCl 1.25 mg Q4HR NEB 03/05/25 13:45 03/08/25 11:12 1.25 MG Thiamine HCl 100 mg DAILY IV 03/06/25 10:00 03/08/25 12:00 100 MG Lorazepam 1 mg Q4H IV 03/05/25 16:30 Folic Acid 1 mg/ Dextrose 50.2 ml @ 200 mls/hr DAILY INJ 03/05/25 16:49 03/06/25 15:08 200 MLS/HR Mupirocin 1 applic BID EACHNOSTRI 03/07/25 22:45 03/12/25 22:44 Vancomycin HCl 250 ml @ 200 mls/hr Q8H IV 03/08/25 17:00 Examination General Appearance: Uncooperative. Obese. Head Exam: Normal inspection, atraumatic. Moist mucous membranes. Pulmonary/Respiratory: Equal bilateral air entry, crackles heard. Cardiovascular/Chest: Regular rate and rhythm. No murmurs. Peripheral Pulses: 2+ Pedal (R). 2+ Pedal (L) Abdominal Exam: Normal bowel sounds. Soft. normal abdomen, no visible veins, Nontender. No hepatospenomegaly. No masses perineum umbilical hernia noted. Ankle Exam: 3+ pitting edema. Right foot diabetic foot ulcer x2 on the plantar surface, sinuses draining serosanguineous exudate. Left foot dorsal surface to open full-thickness ulcers, 1 proximal aspect of left 2nd phalange and 2nd between the 2nd and 3rd metatarsals, with serosanguineous discharge foul- smelling. noted on the dorsum of the foot. Left foot opened ulcer noted. Neuro/Mental Status: A&O x 3-4. laboratory and microbiology Laboratory Tests 03/08/25 14:29 Test 03/08/25 14:29 Range/Units Serum Glucose 201 H 74-106 mg/dL Microbiology Date/Time Source Procedure Growth Status 03/04/25 12:20 Foot Right Gram Stain - Final Complete 03/04/25 12:20 Wound Culture - Final Proteus mirabilis Complete 03/03/25 02:10 Blood Blood Culture - Final NO GROWTH AFTER 5 DAYS OF INCUBATION. Complete Problem List/Assessment/Plan Problem List/Assessment/Plan Acute CHF exacerbation, HFrEF (EF 10%) Tricuspid regurgitation Advanced heart failure noncompliant to GDMT Acute hypoxic respiratory failure likely due to above CXR: Cardiomegaly with moderate pulmonary vascular congestion. On 2 L oxygen supplementation Furosemide 40 mg IV b.i.d. with strict I&O Levalbuterol 1.25 mg neb q4h, Ipratropium 0.5 mg neb COVID 19, influenza negative Echo shows EF 10-15% with tricuspid regurgitation. Osteomyelitis right 1st metatarsal, right great toe Bilateral lower extremity cellulitis Chronic ulcer of plantar surface of right midfoot likely due to complicated by uncontrolled diabetes Chronic nonhealing ulcer on dorsal surface of left foot Charcot arthropathy right foot MRI shows diffuse osteomyelitis throughout 1st metatarsal and great toe. Diffuse soft tissue edema in bilateral feet. Diffuse intramuscular edema present in bilateral feet. Wound consult Blood culture, MRSA screen ordered Pain management with acetaminophen 650 mg po q6h and [place] 1 tab po q6h Continue IV vancomycin and cefepime Podiatry recommended IV antibiotics, no procedure recommended at this time. Patient's blood culture is negative, wound from left foot is growing Gram- positive rods, Gram-positive cocci in pairs and Gram-negative rods. Wound from right foot is growing Gram-positive cocci in pairs, Gram-negative rods. MRSA positive. Continue current IV antibiotics, sensitivity report shows pansensitive Proteus mirabilis. ID consulted Type 2 diabetes mellitus with hyperglycemia, uncontrolled Mild sliding scale A1c 8.0 Obesity, BMI 42.4 kg/m2 I have counseled the patient on lifestyle modifications. History of Polysubstance abuse Possible alcohol withdrawal History of drug abuse UDS positive for methamphetamine use Continue IV folic acid, thiamine and CIWA protocol Patient counseled against drug use for more than 15 minutes on bedside Noncompliant Patient A&O x4, denying management plan selectively DIET: Cardiac DVT PROPHYLAXIS: Lovenox GI PROPHYLAXIS: Protonix CODE STATUS: Goals of care discussed with patient at bedside for more than 19 minutes. Full code DISPOSITION: Telemetry This medical document was created using an electronic medical record system with M*M [employer] direct computerized dictation system. Although this document has been carefully reviewed, there may still be some phonetic and typographical errors. These areas are purely typographical due to imperfections of the software programs, and do not reflect any compromise in the patient's medical care. Patient's status and plan discussed with the patient. Case discussed with Dr. Aragon Plan discussed with: Patient, Other (Nurses) Dietary Evaluation Review Comments: Nutrition Recommendation 1) Consider CCHO 90gm + cardiac diet 2) Julio 240ml TID Expected Outcomes/Goals: Wound to improve Lab values to improve Fu 3-5 days Date of Service: Mar 08, 2025 Billing Provider: SHYANNE ARAGON MD Common Visit Codes: [id number] INP/OBS CARE(MOD) FRANKLIN PERALES RESIDENT Mar 08, 2025 16:33 SHYANNE ARAGON MD Mar 08, 2025 20:33
[2025-03-08] MEDS: VANCOMYCIN 1.25GM/250ML 250 ML IV SCH (17:59)
--- NOTE | 2025-03-08 23:41 | DVHPN2 ---
Progress Note - Dictate Date Seen: Mar 08, 2025 Medical Necessity Reason Pt with a Central, PICC or Fol: No Subjective Patient was seen and evaluated in follow up. Patient is on 2 LPM NC. BS are elevated in the 200s. ID consult pending. Telemetry reviewed. vital signs Vital Sign Date Time Temp Pulse Resp B/P (MAP) Pulse Ox O2 Delivery O2 Flow Rate FiO2 03/08/25 22:22 98 18 143/103 98 0.0 21 03/08/25 21:00 98.4 98.4 03/08/25 20:00 Nasal Cannula* Total Intake and Output 03/07/25 03/07/25 03/08/25 15:00 23:00 07:00 Intake Total 250 ml 50 ml 470 ml Output Total 2075 ml 525 ml 575 ml Balance -1825 ml -475 ml -105 ml medications Current Medications Medications Dose Ordered Sig/Fartun Route Start Time Stop Time Status Last Admin Dose Admin Sodium Chloride 10 ml Q8HR IV 03/03/25 06:00 03/08/25 21:10 10 ML Enoxaparin Sodium 40 mg DAILY SC 03/03/25 10:00 03/06/25 09:49 40 MG Acetaminophen 650 mg Q6HP PRN PO 03/03/25 04:45 03/07/25 22:01 650 MG Vancomycin HCl 0 ml @ 0 mls/hr PER PHARMACY IV 03/03/25 04:45 Ceftriaxone Sodium 50 ml @ 100 mls/hr DAILY@09 IV 03/03/25 09:00 UNV Diagnostic Test (Pha) 1 strip ACHS 03/03/25 07:00 03/08/25 21:10 1 STRIP Insulin Human Regular ACHS SC 03/03/25 07:00 03/03/25 05:59 3 UNITS Dextrose 50 ml UD PRN IV 03/03/25 04:45 Ipratropium [place] 0.5 mg Q4HPRN PRN NEB 03/03/25 04:45 03/05/25 09:49 0.5 MG Furosemide 40 mg BIDD IV 03/03/25 18:00 03/08/25 06:00 40 MG Meropenem 50 ml @ 17 mls/hr Q8HR IV 03/05/25 22:00 03/08/25 21:04 17 MLS/HR Ipratropium [place] 0.5 mg Q4HR NEB 03/05/25 14:00 03/08/25 21:44 0.5 MG Levalbuterol HCl 1.25 mg Q4HR NEB 03/05/25 13:45 03/08/25 21:44 1.25 MG Thiamine HCl 100 mg DAILY IV 03/06/25 10:00 03/08/25 12:00 100 MG Lorazepam 1 mg Q4H IV 03/05/25 16:30 Folic Acid 1 mg/ Dextrose 50.2 ml @ 200 mls/hr DAILY INJ 03/05/25 16:49 03/06/25 15:08 200 MLS/HR Mupirocin 1 applic BID EACHNOSTRI 03/07/25 22:45 03/12/25 22:44 Vancomycin HCl 250 ml @ 200 mls/hr Q8H IV 03/08/25 17:00 03/08/25 17:59 200 MLS/HR objective GENERAL: Alert and oriented x 3. No acute distress. EYES: PERRL, EOMI. Anicteric. HENT: Moist mucous membranes. LUNGS: Clear to auscultation bilaterally. CARDIOVASCULAR: Regular rate and rhythm. ABDOMEN: Soft, nontender and nondistended. EXTREMITIES: Lower extremity edema, pedal edema, bilateral feet swelling, bilateral lower extremity tenderness, right foot Charcot deformity, Chronic ulcer of plantar surface of right midfoot. NEUROLOGIC: No focal neurological deficits. SKIN: Warm, dry. laboratory and microbiology Laboratory Tests 03/08/25 14:29 Test 03/08/25 14:29 Range/Units Serum Glucose 201 H 74-106 mg/dL Problem List Acute CHF exacerbation, HFrEF (EF 10%). Advanced heart failure noncompliant to GDMT. Acute hypoxic respiratory failure likely due to above. Bilateral lower extremity cellulitis. Chronic ulcer of plantar surface of right midfoot likely due to complicated by uncontrolled diabetes. Chronic nonhealing ulcer on dorsal surface of left foot. Charcot arthropathy right foot. Type 2 diabetes mellitus with hyperglycemia, uncontrolled. Obesity. History of Polysubstance abuse Assessment/Plan Continued all current supportive medical care. Tylenol for pain management. DVT prophylactics. Diuretics with Lasix. IV antibiotics as ordered. Additional plan as per the hospital course. Dietary Evaluation Review Comments: Nutrition Recommendation 1) Consider CCHO 90gm + cardiac diet 2) Julio 240ml TID Expected Outcomes/Goals: Wound to improve Lab values to improve Fu 3-5 days Plan discussed with: Patient MIGUEL OLIVIER MD Mar 08, 2025 23:41
[2025-03-09] VITALS (11 sets, daily range): BP systolic 131–160; BP diastolic 78–101; PULSE 92–106; RESP 18–20; TEMP 36.1; O2SAT 90–95
[2025-03-09 07:07] LABS: Mean Corpuscular Volume 83.0 fL (80.0-100.0); Nucleated Red Blood Cells % 0.1 %
[2025-03-09 07:11] LABS: Hematocrit 36.1 % (41.0-53.0); Hemoglobin 11.5 g/dL (13.5-17.5); Mean Corpuscular Hemoglobin 26.6 pg (28.0-32.0)
[2025-03-09 07:13] LABS: Chloride 100 mmol/L (98-107); Potassium 4.0 mmol/L (3.5-5.1); Sodium 137 mmol/L (136-145)
[2025-03-09 07:14] LABS: Anion Gap 7 (5-15); Carbon Dioxide 30 mmol/L (20-31)
[2025-03-09 07:15] LABS: Calcium 8.5 mg/dL (8.7-10.4)
[2025-03-09 07:19] LABS: BUN/Creatinine Ratio 9.9 (10.0-20.0)
[2025-03-09 07:21] LABS: Blood Urea Nitrogen 9 mg/dL (9-23); Glucose 180 mg/dL (74-106)
--- NOTE | 2025-03-09 10:30 | DVHDSRES ---
Discharge Summary Date of Admission Resident Creating Document: FRANKLIN PERALES RESIDENT Mar 03, 2025 at 04:31 Date of Discharge: Mar 09, 2025 Labs/Diagnostic Data: Laboratory Results Test 03/09/25 06:00 03/08/25 21:09 03/07/25 22:53 03/07/25 10:08 White Blood Count 7.4 10^3/uL (4.4-10.8) Red Blood Count 4.35 10^6/uL (4.5-5.90) Hemoglobin 11.5 g/dL (13.5-17.5) Hematocrit 36.1 % (41.0-53.0) Mean Corpuscular Volume 83.0 fL (80.0-100.0) Mean Corpuscular Hemoglobin 26.6 pg (28.0-32.0) Mean Corpuscular Hemoglobin Concent 32.0 g/dL (32.0-36.0) Red Cell Distribution Width 17.2 % (11.8-14.3) Platelet Count 422 10^3/uL (140-450) Mean Platelet Volume 7.7 fL (6.9-10.8) Neutrophils (%) (Auto) 74.9 % (37.0-80.0) Lymphocytes (%) (Auto) 11.5 % (10.0-50.0) Monocytes (%) (Auto) 10.1 % (0.0-12.0) Eosinophils (%) (Auto) 2.2 % (0.0-7.0) Basophils (%) (Auto) 1.3 % (0.0-2.0) Neutrophils # (Auto) 5.6 10 ^3/uL (1.6-8.6) Lymphocytes # (Auto) 0.8 10 ^3/uL (0.4-5.4) Monocytes # (Auto) 0.7 10 ^3/uL (0-1.3) Eosinophils # (Auto) 0.2 10 ^3/uL (0-0.8) Basophils # (Auto) 0.1 10 ^3/uL (0-0.2) Nucleated Red Blood Cells 0.1 % Sodium Level 137 mmol/L (136-145) Potassium Level 4.0 mmol/L (3.5-5.1) Chloride Level 100 mmol/L (98-107) Carbon Dioxide Level 30 mmol/L (20-31) Anion Gap 7 (5-15) Blood Urea Nitrogen 9 mg/dL (9-23) Creatinine 0.91 mg/dL (0.700-1.30) Glomerular Filtration Rate Calc 100 mL/min (>90) BUN/Creatinine Ratio 9.9 (10.0-20.0) Serum Glucose 180 mg/dL (74-106) Calcium Level 8.5 mg/dL (8.7-10.4) POC Glucose 197 mg/dl (70-106) Vancomycin Level Trough 20.5 ug/mL (5-10) Prothrombin Time 13.3 sec (9.3-11.8) Prothrombin Time INR 1.29 (0.9-1.15) Activated Partial Thromboplast Time 28.5 SEC (24.5-34.5) Test 03/06/25 16:06 03/06/25 10:03 03/06/25 00:20 03/05/25 19:30 Troponin I High Sensitivity 40 ng/L (</=54) Magnesium Level 1.6 mg/dL (1.6-2.6) Total Bilirubin 0.5 mg/dL (0.2-1.0) Aspartate Amino Transferase (AST) 22 U/L (13-40) Alanine Aminotransferase (ALT) 18 U/L (7-40) Alkaline Phosphatase 101 U/L (46-116) Total Protein 7.4 g/dL (5.7-8.2) Albumin 3.3 g/dL (3.2-4.8) Plasma/Serum Blood Alcohol < 3.0 mg/dL (<10) Urine Color Yellow (Yellow) Urine Clarity Clear (Clear) Urine pH 5.5 (5.0-9.0) Urine Specific [place] 1.018 (1.001-1.035) Urine Protein Trace (Negative) Urine Ketones Negative (Negative) Urine Blood Negative /uL (Negative) Urine Nitrite Negative (Negative) Urine Bilirubin Negative (Negative) Urine Urobilinogen Normal mg/dL (Negative) Urine Leukocyte Esterase Negative /uL (Negative) Urine RBC <1 /hpf (0 - 3) Urine Microscopic WBC 1 /HPF (0-3) Urine Squamous Epithelial Cells None seen /hpf (<5) Urine Bacteria Few /hpf (None Seen) Urine Hyaline Casts Few /lpf (0 - 2) Urine Mucus Few (None Seen) Urine Glucose Normal mg/dL (Normal) Urine Opiates Screen Neg (NEGATIVE) Urine Fentanyl Screen Neg (NEGATIVE) Urine Barbiturates Screen Neg (NEGATIVE) Urine Phencyclidine Screen Neg (NEGATIVE) Urine Amphetamines Screen Pos (NEGATIVE) Urine Benzodiazepines Screen Neg (NEGATIVE) Urine Cocaine Screen Neg (NEGATIVE) Urine Cannabinoids Screen Neg (NEGATIVE) Test 03/05/25 10:12 03/04/25 11:17 03/03/25 19:20 03/03/25 09:10 Blood Gas Specimen Type Arterial Blood Gas Sample Site Right radial Blood Gas Patient Temperature 37.0 Arterial Blood Date Drawn [id number] Arterial Blood pH 7.413 (7.350-7.450) Arterial Blood Partial Pressure CO2 42.9 mmHg (35.0-48.0) Arterial Blood Partial Pressure O2 45.2 mmHg (83.0-108.0) Arterial Blood HCO3 26.8 mmol/L (21.0-28.0) Arterial Blood Oxygen Saturation 79.7 % (94.0-98.0) Arterial Blood Base Excess 1.9 mmol/L (-2.0-3.0) Arterial Blood Oxyhemoglobin 78.2 % (94.0-98.0) Arterial Blood Carboxyhemoglobin 1.4 % (0.5-1.5) Arterial Blood Methemoglobin 0.5 % (0.0-1.5) Erich Test Yes Blood Gas Total Hemoglobin 12.10 g/dL (13.5-17.5) Blood Gas Modality Room air FiO2 % 21.0 Blood Gas Critical Value Read Back Rt gabriele pitt Blood Gas Notified Whom Md. channing dumont Blood Gas Notified Time [id number] Blood Gas Notified By Lactic Acid Level 1.2 mmol/L (0.4-2.0) Direct Bilirubin 0.4 mg/dL (<0.3) Thyroid Stimulating Hormone (TSH) 3.76 uIU/mL (0.55-4.78) Influenza Type A Antigen Negative (Negative) Influenza Type B Antigen Negative (Negative) SARS-CoV-2 Antigen (Rapid) Negative (NEGATIVE) Test 03/03/25 05:51 03/03/25 02:10 Hemoglobin A1c 8.0 % A1C (<5.7) B-Type Natriuretic Peptide 981.95 pg/mL (0-100) Other Laboratory Tests 03/09/25 06:00 Brief Hx & Hospital Course: History on presentation: Patient is a 54-year-old homeless male with past medical history of CHF (EF 10%), COPD, DM, AK and stroke, presented to [facility] ED with complaint of pain and swelling in bilateral lower extremities. Patient is a poor historian. Patient complains of pain in bilateral thighs, relieved with walking. He also reports having nonhealing ulcers on both lower legs for several months. Patient was previously prescribed medications for diabetes and CHF, which he discontinued approximately one year ago due to perceived side effects and lack of benefit. He reports worsening pain and swelling in his both legs, particularly on the right foot. He reports progressive shortness of breath over the past 4 months, with worsening symptoms over the last 4 days. He denies fever, chills, nausea, vomiting. Hospital course: On arrival, patient had tachycardic, tachypnea and hypoxic, using 2 L Oxygen NC. Initial labs show normocytic anemia and serum glucose 158. Chest X-ray shows cardiomegaly with moderate pulmonary vascular congestion. patient was admitted along the lines of acute exacerbation of systolic congestive heart failure. He was started on Furosemide 40 mg IV b.i.d. with strict I&O. He was treated with IV antibiotic vancomycin and cefepime for chronic nonhealing right and left foot wound. Supportive management with Med neb treatment with Levalbuterol, Ipratropium, oxygen supplementation, pain management. Cardiology on board, recommended diuresis and strict I&O. MRI shows diffuse osteomyelitis throughout 1st metatarsal and great toe, diffuse soft tissue edema in bilateral feet, diffuse intramuscular edema present in bilateral feet. Wound culture resulted proteus mirabilis, Acinetobacter baumannii, Enterococcus faecalis. MRSA screen positive for MRSA nose. Considering medical history of drug abuse and likely active drug use, patient will be sent home on oral antibiotics. He will follow closely with PCP and Infectious Disease Specialist in outpatient clinic. He will be discharged to home health for wound care when available. Patient remained noncompliant to medical management during the stay. He is also noncompliant on GDMT and has poor prognosis. Conditions managed during stay: Acute on chornic systolic congestive heart failure exacerbation, HFrEF (EF 10%) Tricuspid regurgitation Advanced heart failure noncompliant to GDMT Acute hypoxic respiratory failure likely due to above Osteomyelitis right 1st metatarsal, right great toe Bilateral lower extremity cellulitis Chronic ulcer of plantar surface of right midfoot likely due to complicated by uncontrolled diabetes Chronic nonhealing ulcer on dorsal surface of left foot Charcot arthropathy right foot Type 2 diabetes mellitus with hyperglycemia, uncontrolled Obesity, BMI 42.4 kg/m2 History of Polysubstance abuse History of drug abuse Noncompliant Plan: Continue antibiotic course for 4 weeks Continue GDMT and close follow with Cardiology Continue home medications Follow with PCP in 1 week Follow with Cardiology in outpatient clinic Follow with Infectious disease in outpatient clinic Consults/Reason for consult Cardiology on board, recommended diuresis and strict I&O. Operations or Procedures INDICATION: rule out aspiration TECHNIQUE: Frontal view of the chest. COMPARISON: XY CHEST XRAY 1 VIEW on DOS: 03/04/25, XY CHEST XRAY 1 VIEW on DOS: 03/03/25, XY CHEST XRAY 1 VIEW on DOS: 01/18/25, XY CHEST XRAY 1 VIEW on DOS: 05/17/23 FINDINGS: Cardiomegaly. The heart and mediastinal contours are grossly unremarkable. There is no evidence of pleural disease. The lungs are clear. The bony structures of the chest are intact without fracture. IMPRESSION: 1. Cardiomegaly with mild CHF BILATERAL Lower Extremity Arterial Duplex Date: 03/03/2025 06:28 PM Clinical History: R/o PAD Comparison: None Technique: Duplex Doppler evaluation including color Doppler and spectral/pulsed waveform analysis of the lower extremity arteries was performed. Finding: RIGHT: Peak systolic velocities are as follows: PHOTOGRAMMETRIC COMPILATION SPECIALIST 101 cm/s triphasic waveform Deep femoral 77 cm/s biphasic waveform SFA proximal 118 cm/s triphasic waveform SFA mid-portion 102 cm/s triphasic waveform SFA distal 71 cm/s triphasic waveform Popliteal: Popliteal artery proximally: 75 cm/sec triphasic waveform Popliteal artery distally 71 cm/s; triphasic waveform Posterior tibial 114 cm/s triphasic waveform Anterior tibial 148 cm/s triphasic waveform Dorsalis pedis nonvisualized LARGEST RIGHT INGUINAL LYMPH NODE 5.9 CM The waveforms are biphasic and triphasic waveforms throughout the right lower extremity. Dorsalis pedis not visualized.. LEFT: Peak systolic velocities are as follows: PHOTOGRAMMETRIC COMPILATION SPECIALIST 191 cm/s triphasic waveform Deep femoral 56 cm/s triphasic waveform SFA proximal 123 cm/s triphasic waveform SFA mid-portion 115 cm/s triphasic waveform SFA distal 116 cm/s triphasic waveform Popliteal: Proximal popliteal artery: 107 cm/s triphasic waveform Distal popliteal artery: 111 cm/sec ; triphasic waveform Posterior tibial 91 cm/s triphasic waveforms Anterior tibial 95 cm/s triphasic waveform Dorsalis pedis non visible LARGEST LEFT INGUINAL LYMPH NODE 3.2 CM The waveforms are triphasic waveform throughout. REFERENCE VALUES, [facility]) vascular Imaging Lab Criteria: Peak systolic velocity ranges (in cm/sec) are as follows: <150 cm/s - <20 % stenosis 150-200 cm/s - 20-49% stenosis 200-300 cm/s - 50-75% stenosis >300 cm/s -> 75% stenosis IMPRESSION: 1. There is no evidence for peripheral vascular insufficiency in the right lower extremity. Dorsalis pedis not visualized due to bandaging 2. There is no evidence for peripheral vascular insufficiency in the left lower extremity. Dorsalis pedis not visualized due to bandaging. 3. No significant focal stenosis is identified. EXAMINATION: MRI MRI R FOOT WO CONTRAST TECHNIQUE: MRI of the right foot was performed without intravenous contrast. HISTORY: ulcers COMPARISON: MRI MRI L FOOT WO CONTRAST on DOS: 03/03/25, XY R FOOT 2 VIEW XRAY on DOS: 05/17/23 FINDINGS: Extensive bone marrow edema and destructive bony changes throughout the great toe proximal phalanx as well as throughout the 1st metatarsal. Otherwise no definite bone marrow edema. Severe diffuse soft tissue edema. No obvious focal fluid collection. Please note contrast was not administered. Flexor extensor tendons appear intact. No tenosynovitis. Diffuse intramuscular edema. IMPRESSION: Diffuse osteomyelitis throughout the 1st metatarsal and great toe. Diffuse soft tissue edema. Diffuse intramuscular edema. CHEST RADIOGRAPH Indication: sob Technique: Single frontal view of the chest was obtained COMPARISON: XY CHEST XRAY 1 VIEW on DOS: 01/18/25, XY CHEST XRAY 1 VIEW on DOS: 05/17/23 FINDINGS: Lines and Tubes: None Lungs: Moderate diffuse increased prominence of the pulmonary vasculature without evidence of focal consolidation. Pleura: No effusion. No pneumothorax. Cardiomediastinal contours: Cardiomegaly. Bones: Unremarkable IMPRESSION: 1. Cardiomegaly with moderate pulmonary vascular congestion. Condition at Discharge: Stable Final Diagnosis/Problems List Acute on chronic systolic congestive heart failure exacerbation, HFrEF (EF 10%) Tricuspid regurgitation Advanced heart failure noncompliant to GDMT Acute hypoxic respiratory failure likely due to above Osteomyelitis right 1st metatarsal, right great toe Bilateral lower extremity cellulitis Chronic ulcer of plantar surface of right midfoot likely due to complicated by uncontrolled diabetes Chronic nonhealing ulcer on dorsal surface of left foot Charcot arthropathy right foot Type 2 diabetes mellitus with hyperglycemia, uncontrolled Obesity, BMI 42.4 kg/m2 History of Polysubstance abuse History of drug abuse Noncompliant Discharge Disposition: Home with Health Services Discharge Instruct/Medications Diet: Consistent carbohydrate, Cardiac 2g Na,low cholest Activity: No Restrictions, As Tolerated Follow Up/Referral: Follow with PCP in 1 week Follow with Cardiology in outpatient clinic Follow with Infectious disease in outpatient clinic Medications: As per EHR Scheduled Sulfamethoxazole W/Trimethopri (Bactrim Ds Tablet), 1 TAB PO BID Discharge Statement: "Patient was advised to return to the ER or call 911 if any headaches, dizziness, shortness of breath, chest pain, abdominal pain, bleeding, fevers, or worsening of medical condition. Patient was counseled about treatment plan, medications, possible side effects, patientverbalized understanding. All questions were answered to the best of my ability. This discharge took greater then 30 minutes in planning, reviewing documentation, counseling the patient, and discussing with other team members." ASSESSMENT ASSESSMENT Assessment Acute on chronic systolic congestive heart failure exacerbation, HFrEF (EF 10%) Tricuspid regurgitation Advanced heart failure noncompliant to GDMT Acute hypoxic respiratory failure likely due to above Osteomyelitis right 1st metatarsal, right great toe Bilateral lower extremity cellulitis Chronic ulcer of plantar surface of right midfoot likely due to complicated by uncontrolled diabetes Chronic nonhealing ulcer on dorsal surface of left foot Charcot arthropathy right foot Type 2 diabetes mellitus with hyperglycemia, uncontrolled Obesity, BMI 42.4 kg/m2 History of Polysubstance abuse History of drug abuse Noncompliant Date of Service: Mar 09, 2025 Billing Provider: FRANKLIN PERALES Common Visit Codes: 82133-[facility]/OBS DISCH DAY >30min FRANKLIN PERALES RESIDENT Mar 09, 2025 10:30 SHYANNE FIGUEROA MD Mar 11, 2025 14:56
[2025-03-09] MEDS ORDERED: BACDST PO ×2 (11:21→11:46)
--- NOTE | 2025-03-09 21:11 | DVHPN2 ---
Consult Progress Note Objective vital signs Vital Sign Date Time Temp Pulse Resp B/P (MAP) Pulse Ox O2 Delivery O2 Flow Rate FiO2 03/09/25 11:44 36.1 101 19 95 03/09/25 09:58 Room Air* 0 21 03/09/25 09:00 131/101 (111) Total Intake and Output 03/08/25 03/08/25 03/09/25 15:00 23:00 07:00 Intake Total 50 ml 500 ml 400 ml Output Total 1050 ml 250 ml Balance -1000 ml 500 ml 150 ml medications Current Medications Medications Dose Ordered Sig/Fartun Route Start Time Stop Time Status Last Admin Dose Admin Ceftriaxone Sodium 50 ml @ 100 mls/hr DAILY@09 IV 03/03/25 09:00 UNV laboratory and microbiology Laboratory Tests 03/09/25 06:00 Test 03/09/25 06:00 Range/Units Serum Glucose 180 H 74-106 mg/dL Dietary Evaluation Review Comments: Nutrition Recommendation 1) Consider CCHO 90gm + cardiac diet 2) Julio 240ml TID Expected Outcomes/Goals: Wound to improve Lab values to improve Fu 3-5 days SUMIT BLUM MD Mar 09, 2025 21:11
--- NOTE | 2025-03-09 23:35 | DVHPN2 ---
Progress Note - Dictate Date Seen: Mar 09, 2025 Medical Necessity Reason Pt with a Central, PICC or Fol: No Subjective Patient was seen and evaluated in follow up. Patient has no new complaints at this time. Patient denies any cardiac symptoms. Patient is cardiac stable for discharge. Telemetry reviewed. vital signs Vital Sign Date Time Temp Pulse Resp B/P (MAP) Pulse Ox O2 Delivery O2 Flow Rate FiO2 03/09/25 11:44 36.1 101 19 95 03/09/25 09:58 Room Air* 0 21 03/09/25 09:00 131/101 (111) Total Intake and Output 03/08/25 03/08/25 03/09/25 15:00 23:00 07:00 Intake Total 50 ml 500 ml 400 ml Output Total 1050 ml 250 ml Balance -1000 ml 500 ml 150 ml medications Current Medications Medications Dose Ordered Sig/Fartun Route Start Time Stop Time Status Last Admin Dose Admin Ceftriaxone Sodium 50 ml @ 100 mls/hr DAILY@09 IV 03/03/25 09:00 UNV objective GENERAL: Alert and oriented x 3. No acute distress. EYES: PERRL, EOMI. Anicteric. HENT: Moist mucous membranes. LUNGS: Clear to auscultation bilaterally. CARDIOVASCULAR: Regular rate and rhythm. ABDOMEN: Soft, nontender and nondistended. EXTREMITIES: Lower extremity edema, pedal edema, bilateral feet swelling, bilateral lower extremity tenderness, right foot Charcot deformity, Chronic ulcer of plantar surface of right midfoot. NEUROLOGIC: No focal neurological deficits. SKIN: Warm, dry. laboratory and microbiology Laboratory Tests 03/09/25 06:00 Test 03/09/25 06:00 Range/Units Serum Glucose 180 H 74-106 mg/dL Problem List Acute CHF exacerbation, HFrEF (EF 10%). Advanced heart failure noncompliant to GDMT. Acute hypoxic respiratory failure likely due to above. Bilateral lower extremity cellulitis. Chronic ulcer of plantar surface of right midfoot likely due to complicated by uncontrolled diabetes. Chronic nonhealing ulcer on dorsal surface of left foot. Charcot arthropathy right foot. Type 2 diabetes mellitus with hyperglycemia, uncontrolled. Obesity. History of Polysubstance abuse Assessment/Plan Continued all current supportive medical care. Tylenol for pain management. Nebulized breathing treatments. Additional plan as per the hospital course. Dietary Evaluation Review Comments: Nutrition Recommendation 1) [facility] 2) Julio 240ml TID Expected Outcomes/Goals: Wound to improve Lab values to improve Fu 3-5 days Plan discussed with: Patient MIGUEL OLIVIER MD Mar 09, 2025 15:31
== END 2025-03-09 13:45 | disposition home health service (06) | DRG 344 ==
LOC: ER 00:56 → OVERFLOW 04:31 → TELE-WESTW 08:00 → TELE-EAST 03-04 07:00
PROVIDERS: ADMIT Internal Medicine Geriatric Medicine; ATTEND Internal Medicine Geriatric Medicine
DX: E11.69 Type 2 diabetes mellitus with other specified complication (principal); M86.8X7 Other osteomyelitis, ankle and foot; J96.01 Acute respiratory failure with hypoxia; I50.23 Acute on chronic systolic (congestive) heart failure; I11.0 Hypertensive heart disease with heart failure; L03.115 Cellulitis of right lower limb; E11.618 Type 2 diabetes mellitus with other diabetic arthropathy; D64.9 Anemia, unspecified; L03.116 Cellulitis of left lower limb; E66.9 Obesity, unspecified; J44.89 Other specified chronic obstructive pulmonary disease; I07.1 Rheumatic tricuspid insufficiency; Z20.822 Contact with and (suspected) exposure to COVID-19; E11.621 Type 2 diabetes mellitus with foot ulcer; L97.419 Non-pressure chronic ulcer of right heel and midfoot with unspecified severity; E11.65 Type 2 diabetes mellitus with hyperglycemia; L97.529 Non-pressure chronic ulcer of other part of left foot with unspecified severity; F17.210 Nicotine dependence, cigarettes, uncomplicated; F15.90 Other stimulant use, unspecified, uncomplicated; Z59.00 Homelessness unspecified; Z86.73 Personal history of transient ischemic attack (TIA), and cerebral infarction without residual deficits; I25.2 Old myocardial infarction; Z68.41 Body mass index [BMI] 40.0-44.9, adult; Z91.199 Patient's noncompliance with other medical treatment and regimen due to unspecified reason; Z82.49 Family history of ischemic heart disease and other diseases of the circulatory system
CPT/HCPCS: 36415; 36600; 71045; 73718; 80048; 80053; 80076; 80202; 80307; 80320; 81001; 82565; 82805; 82962; 83036; 83605; 83735; 83880; 84443; 84484; 85025; 85610; 85730; 87040; 87077; 87081; 87186; 87205; 87426; 87804; 93306; 93925; 94640; 96374; 96375; 97110; 97116; 97163; 97530; G0378; J1815; J2185; J7060; Q9956